=== PATIENT | male | born 1965 | race Caucasian/White ===

== ENCOUNTER 2022-10-21 13:14 | Outpatient (REF) | payer OTHER, SELFPAY ==
[2022-10-21 16:30] LABS: ALT 29 U/L (16-63); AST 17 U/L (15-37); Albumin 4.5 g/dL (3.4-5.0); Alkaline Phosphatase 91 U/L (46-116); Anion Gap 9.6 mmol/L (3-11); BUN 16 mg/dL (7-18); Bilirubin, Total 0.6 mg/dL (0.2-1.0); CO2 27.4 mmol/L (21.0-32.0); CREATININE 1.2 mg/dL (0.70-1.30); Calcium 10.1 mg/dL (8.5-10.1); Chloride 96 mmol/L (98-107); Cholesterol 144 mg/dL (<200); Estimated GFR 69.66 (mL/min/1.73m2); Glucose 374 mg/dL (74-106); HDL Cholesterol 35 mg/dL (40-60); Potassium 4.2 mmol/L (3.5-5.1); Sodium 133 mmol/L (136-145); Total Protein 7.8 g/dL (6.4-8.2); Triglyceride 577 mg/dL (<150)
[2022-10-21 18:24] LABS: LDL CHOLESTEROL 44 mg/dL (<100)
[2022-10-22 20:24] LABS: PSA, Screening 5.2 ng/mL (<=3.5)
== END 2022-10-21 13:15 | disposition home or self-care (01) ==
LOC: NCHCN 13:14
PROVIDERS: Visit Provider Nurse Practitioner Family
DX: Z12.5 Encounter for screening for malignant neoplasm of prostate (principal); E11.9 Type 2 diabetes mellitus without complications; E78.5 Hyperlipidemia, unspecified
CPT/HCPCS: 80053; 80061; 83721; 84153

== ENCOUNTER → 2022-11-23 14:51 | Outpatient (BNVA) | payer OTHER, SELFPAY | PROVIDERS: PCP Nurse Practitioner Family; Referring Provider Nurse Practitioner Family; Visit Provider Urology | DX: R97.20 Elevated prostate specific antigen [PSA] (principal); R35.1 Nocturia; N39.43 Post-void dribbling | CPT/HCPCS: 51798; 99204 ==

== ENCOUNTER → 2022-12-14 09:33 | Outpatient (BNVA) | payer OTHER, SELFPAY | PROVIDERS: PCP Nurse Practitioner Family; Referring Provider Nurse Practitioner Family; Visit Provider Urology ==

== ENCOUNTER 2022-12-14 09:54 | Outpatient (REF) | payer OTHER, SELFPAY ==
[2022-12-14 18:36] LABS: PSA, Diagnostic 4.6 ng/mL (<=3.5)
== END 2022-12-14 09:55 | disposition home or self-care (01) ==
LOC: LBN 09:54
PROVIDERS: PCP Nurse Practitioner Family; Visit Provider Urology
DX: R97.20 Elevated prostate specific antigen [PSA] (principal)
CPT/HCPCS: 84153

== ENCOUNTER → 2022-12-31 11:00 | Outpatient (BNVA) | payer OTHER, SELFPAY | PROVIDERS: PCP Nurse Practitioner Family; Referring Provider Nurse Practitioner Family; Visit Provider Urology | DX: R97.20 Elevated prostate specific antigen [PSA] (principal) | CPT/HCPCS: 99214 ==

== ENCOUNTER 2023-01-20 16:47 | Outpatient (REF) | payer OTHER, SELFPAY ==
[2023-01-20 15:50] LABS: Hemoglobin A1C 11.7 % (<5.7)
[2023-01-20 16:00] LABS: Iron 63 ug/dL (65-175); Total Iron Binding Capacity 293 ug/dL (250-450); Transferrin Sat 22 % (20-55)
[2023-01-20 16:11] LABS: Cholesterol 125 mg/dL (<200); Ferritin 333 ng/mL (26-388); HDL Cholesterol 35 mg/dL (40-60); Triglyceride 511 mg/dL (<150)
[2023-01-20 17:08] LABS: LDL CHOLESTEROL 25 mg/dL (<100)
== END 2023-01-20 16:48 | disposition home or self-care (01) ==
LOC: NCHCN 16:47
PROVIDERS: PCP Nurse Practitioner Family; Visit Provider Nurse Practitioner Family
DX: E78.1 Pure hyperglyceridemia (principal); E83.119 Hemochromatosis, unspecified; E11.9 Type 2 diabetes mellitus without complications
CPT/HCPCS: 80061; 83721; 82728; 83036; 83540; 83550

== ENCOUNTER → 2023-03-01 10:54 | Outpatient (BNVA) | payer OTHER, SELFPAY | PROVIDERS: PCP Nurse Practitioner Family; Referring Provider Nurse Practitioner Family; Visit Provider Urology | DX: R97.20 Elevated prostate specific antigen [PSA] (principal) | CPT/HCPCS: 99213 ==

== ENCOUNTER → 2023-06-02 10:09 | Outpatient (BNVA) | payer OTHER, SELFPAY | PROVIDERS: PCP Nurse Practitioner Family; Referring Provider Nurse Practitioner Family; Visit Provider Physical Therapy Assistant | DX: Z12.11 Encounter for screening for malignant neoplasm of colon (principal); Z86.010 Personal history of colon polyps ==

== ENCOUNTER 2023-06-15 08:09 | Day surgery (SDC) | payer OTHER, SELFPAY ==
--- NOTE | 2023-06-15 06:17 | W.ANESPRE ---
General Info Date of Service Date Performed: 06/15/23 Height: 5 ft 11.5 in Weight: 109.419 kg Body Mass Index (BMI): 33.1 Surgical Procedure: Operation Date: 06/15/23 09:50 Proposed Procedure Side Surgeon p Colonoscopy Casey Reynoso MD Meds Allergies and Home Medications Allergies Allergy/AdvReac Type Severity Reaction Status Date / Time acetaminophen Allergy Verified 06/15/23 08:30 monosodium glutamate Allergy Verified 06/15/23 08:30 oxycodone Allergy Verified 06/15/23 08:30 Home Medication Medication Instructions Recorded atorvastatin 20 mg tablet 20 mg PO DAILY 11/03/22 enalapril maleate 20 mg tablet 20 mg PO DAILY 11/03/22 fenofibrate 160 mg tablet 160 mg PO DAILY 11/03/22 metformin 500 mg tablet 500 mg PO DAILY 11/03/22 bisacodyl 5 mg tablet,delayed 5 mg PO ONCE colonscopy bowel prep 06/02/23 release (Dulcolax (bisacodyl)) #4 tabs polyethylene glycol 3350 17 238 g PO ONCE colonoscopy prep 06/02/23 gram/dose oral powder #238 grams semaglutide 0.25 mg or 0.5 mg (2 0.5 mg subcut QWEEK 06/02/23 mg/3 mL) subcutaneous pen injector (Ozempic) Current Visit Medications: Current Medications Generic Name Dose Route Start Last Admin Trade Name Freq PRN Reason Stop Dose Admin Ringer's Solution 1,000 mls @ 80 mls/hr 06/15/23 06:00 IV 07/14/23 23:59 INFUSION ANNIKA IV Miscellaneous Supplies 1 each 06/15/23 06:00 Iv Access IV 07/14/23 23:59 DIRECTED ANNIKA Sodium Chloride 0 ml 06/15/23 06:00 Normal Saline Flush 10 Ml Syr IV 07/14/23 23:59 PRN PRN Sodium Chloride 0 ml 06/15/23 06:00 Normal Saline 10 Ml Vial IJ 07/14/23 23:59 DIRECTED PRN Sterile Water 0 ml 06/15/23 06:00 Water,Injection,Sterile 10 Ml Vial IJ 07/14/23 23:59 DIRECTED PRN PFSH Active Problems Active Problems: Problem Status Onset Code Nocturia R35.1 Elevated PSA R97.20 Obesity E66.9 Hypertriglyceridemia E78.1 Back pain M54.9 Nephrolithiasis N20.0 History of rectal bleeding Z87.19 Hyperlipidemia E78.5 Colonic polyp K63.5 Family history of hemochromatosis Z83.49 Family history of malignant melanoma Z80.8 Dribbling following urination N39.43 Hypertension I10 Diabetes mellitus E11.9 Medical History Medical History MRSA (methicillin resistant staph aureus) culture positive to buttocks 2011 Scrotal abscess 2005 Surgical History Surgical History H/O lumbosacral spine surgery disc removal 2012, 2014, 2016 MRI 2014 H/O vasectomy Tobacco Smoking/Tobacco Use Status: Current-Occasional Alcohol Alcohol Intake: never Substance Use Substance use: Socially Substance use type: marijuana Vital Signs and Lab Results Vital Signs Most Recent Vital Signs in EMR: Temp Pulse Resp BP Pulse Ox 36.4 C L 65 17 133/82 100 06/15/23 08:21 06/15/23 08:21 06/15/23 08:21 06/15/23 08:21 06/15/23 08:21 Lab Results Blood Type / Crossmatch: No Data to Display Complete Blood Count: No Data to Display Complete Metabolic Panel: No Data to Display Liver Function Panel: No Data to Display Coagulation Panel: No Data to Display Cardiac Panel: No Data to Display Arterial Blood Gas: No Data to Display Venous Blood Gas: No Data to Display Pancreas Panel: No Data to Display Thyroid Panel: No Data to Display Infectious Disease: No Data to Display Blood Cultures: No Data to Display Toxicology Panel: No Data to Display Anesthesia Assessment and Plan Anesthesia History Personal History: No History of Anesthesia Complications Family History: No Family History of Anesthesia Complications Exercise Tolerance Exercise Tolerance: Metabolic Equivalents>4 Cardiac & Pulmonary Exam Cardiac Exam: Normal S1/S2 Heart Sounds Pulmonary Exam: Clear Bilateral Breath Sounds Implantable Cardiac Device Does patient have a Pacemaker or an ICD?: No Airway Exam Known Difficult Airway: No Mallampati Class: 3 Mouth Opening: Normal (> 3cm) Thyromental Distance: Greater than 3 cm Neck Range of Motion: Full ROM Neck Circumference: Normal Teeth Condition: Normal Dentition ASA Classification ASA Score: ASA 2 Emergency Case?: No NPO Status NPO Status: NPO Clears >2 hours, Solids >8 hours Anesthesia Plan Resuscitation Status: Full Code Anesthesia Technique: General Anesthesia Airway Planned: Natural Airway Monitors Used: Standard Monitors Preoperative Comments:: 57 yo male for colo. Sig PMHx: HTN (enalapril), DM (metformin, semaglutide, 9 A1c), occ tobacco/cannabis
[2023-06-15 08:21] VITALS: BP 133/82; PULSE 65; RESP 17; TEMP 36.4; O2SAT 100
[2023-06-15 08:41] VITALS: BMI 33.1
[2023-06-15] MEDS: Lactated Ringers 1,000 ML 80 ML IV (08:43)
--- NOTE | 2023-06-15 09:46 | BOWEL_PTH ---
PATIENT: Jose Mendoza LOC: [facility] U#:[id number] AGE/SX: 57/M ROOM: RE06/15/[address]: Casey Reynoso : 1965 BED: DIS: 06/15/2023 SPEC #: [id number] RECD: 06/15/23 13:16 STATUS: [facility] #: [id number] SEVEN: 06/15/23 09:[address]: Casey Reynoso DEPT: Surgical Specimen RECD BY: Fide Conner ENTERED: 06/15/23 13:17 SP TYPE: Bowel OTHR DR: Marla Doe Tissues: 1 - BIOPSY BOWEL Procedures: GROSS AND MICRO LEVEL 4 Comments: [id number]
[2023-06-15 09:57] VITALS: BP 128/98; PULSE 74; RESP 18; TEMP 36.7; O2SAT 97
--- NOTE | 2023-06-15 10:00 | ROE_ITS ---
Date of service: 06/15/23 Time of Service: 10:00 Operative Note Operative Note Refer to Anesthesia Record Procedure Description: Procedures performed: 1.? Anoscopy 2.? Internal Hemorrhoid banding x4 Preoperative diagnosis: Symptomatic grade 2 internal hemorrhoids Postoperative diagnosis: Same Surgeon: Alice Reynoso Anesthesia: Tom Indication for procedure: 57-year-old man with symptomatic hemorrhoids that bleed regularly.? He was found to have grade 2 internal hemorrhoids on colonoscopy.? He has mild external hemorrhoid disease as well. Findings: All 3 columns rubber-banded. The Left Lateral column disease faci litated 2 rubber bandings. Surveillance/follow-up recommendations: No follow-up needed.? The durability of hemorrhoidal interventions varies greatly and sometimes is only a few years before other hemorrhoids develop/recur. Complications: None Blood loss: Minimal Specimens:? No Procedure in detail: Written consent was obtained from the patient who was in agreement with the risks, benefits and indications of the procedure.? He was kept in the same position after the colonoscopy was done (see separate procedure note) and a well?lubricated anoscope was introduced in the anal canal carefully evaluated for other pathology such as fistulas and/or fissures.? None were seen. Grade 2 internal hemorrhoids were visualized at all 3 columns.? Rubber band ligation was performed at all 3 columns, just above the dentate line, with 1 rubber band placed at each location.? The patient tolerated this procedure well. The scope was then removed and the PACU in stable condition and was not having perianal pain at that time.
--- NOTE | 2023-06-15 10:00 | W.COLOREPORT ---
Date of service: 06/15/23 Time of Service: 10:00 Colonoscopy Report Procedure Description: Procedures performed: 1. Colonoscopy with snare polypectomy x1 Preoperative diagnosis: Surveillance colonoscopy Postoperative diagnosis: Colon polyps, moderate sigmoid diverticulosis, grade 2 internal and external hemorrhoids Surgeon: Alice Reynoso Anesthesia: Tom Indication for procedure: Patient is a 57-year-old man. He had a colonoscopy 6 years ago and was recommended to have a repeat scope in 5 years for surveillance purposes. His polyp at that time was hyperplastic pathology. He does not have a family history of colon cancer. He does have on/off painless rectal bleeding. Findings: The terminal ileum was normal. No inflammation. The right and transverse colon's were normal. A 3 to 5 mm sessile polyp was removed from the sigmoid colon with cold snare technique.? It looked hyperplastic visually. A couple other hyperplastic?appearing polyps remain and were left alone under the presumption they are hyperplastic/benign. Moderate diverticular changes in the sigmoid colon.? Moderate grade 2 internal hemorrhoids were noted on retroflexion. There is some moderate external hemorrhoid disease as well. Banding was performed (see separate procedure note). Surveillance/follow-up recommendations: I presume the pathology will confirm another hyperplastic polyp and if it does and his repeat colonoscopy should be in 10 years. Complications: None Blood loss: Minimal Specimens:?? YES Quality of Prep:?? Good Procedure in detail: Written consent was obtained from the patient who was in agreement with the risks, benefits and indications of the procedure.? We went to the endoscopy suite and laid the patient in left lateral decubitus position.? Anesthesia was administered which was tolerated well.? A timeout was performed and when we are all in agreement we began the procedure. Digital rectal exam and visual examination was performed and within normal limits.? A well?lubricated colonoscope was advanced without difficulty all the way to the cecum identified by the ileocecal valve, and triangular folds and appendiceal orifice.? The terminal ileum was intubated and look normal. The scope was then slowly withdrawn.?? Retroflexion was performed in the rectum.? The findings/interventions are noted above. The scope was then removed and the patient tolerated the procedure well. We then proceeded with banding (see separate procedure note).
--- NOTE | 2023-06-15 10:01 | W.ANESPOSTOP ---
Postoperative Evaluation Date, Time and Location Date Performed: 06/15/23 Time Performed: 10:03 Patient Location: Day Surgery Unit Vital Signs Most Recent Imported Vital Signs: Most Recent Vital Signs Temp Pulse Resp BP Pulse Ox 36.4 C L 65 17 133/82 100 06/15/23 08:21 06/15/23 08:21 06/15/23 08:21 06/15/23 08:21 06/15/23 08:21 Pain Score Most Recent Pain Score: Most Recent Pain Score Pain Level 0 06/15/23 08:21 Assessment Mental Status: Awake (Alert & Oriented to Patient Baseline) Airway and Respiratory Function: Patent airway with normal (patient baseline) respiratory exam Cardiovascular Function: Hemodynamically Stable Hydration Status: Adequately Hydrated Nausea & Vomiting: No Nausea or Vomiting Pain: Pt. Denies Any Pain Peripheral Nerve Block: Patient did not receive a nerve block Postoperative Comments:: vss
--- NOTE | 2023-06-15 10:05 | W.PM.DSUDISC ---
Date of service: 06/15/23 Time of Service: 10:05 Discharge Plan Disposition Patient Disposition: Home Condition: Good Discharge Details Attending Provider: Casey Reynoso Primary Care Provider: Marla Doe Home Meds and New Rx's Prescriptions: No Action polyethylene glycol 3350 17 gram/dose powder 238 g PO ONCE Qty: 238 0RF Rx Instructions: take per colonoscopy instructions bisacodyl [Dulcolax (bisacodyl)] 5 mg tablet,delayed release (DR/EC) 5 mg PO ONCE Qty: 4 0RF Rx Instructions: take per colonoscopy instructions Ozempic 0.25 mg or 0.5 mg (2 mg/3 mL) pen injector 0.5 mg subcut QWEEK metformin 500 mg tablet 500 mg PO DAILY atorvastatin 20 mg tablet 20 mg PO DAILY fenofibrate 160 mg tablet 160 mg PO DAILY enalapril maleate 20 mg tablet 20 mg PO DAILY Discharge Instructions Additional Instructions: FINDINGS: Your colon appears healthy. The end of your small intestine (terminal ileum) looked normal. Your rectum appears normal but significant hemorrhoid disease was indeed found and banding was performed. There will be some discomfort following the banding which should last for couple of days and then slowly go away. Most of the time this will be all that needs to be done in order to get rid of your symptoms. Another polyp was found today but is likely a completely benign polyp and you probably need to do another colonoscopy in 10 years. Stand Alone Forms: Colonoscopy Post Instructions Activity:: Activity as Tolerated Diet:: Normal Diet DS: Diagnosis Discharge Diagnosis (1) History of rectal bleeding: Status: Acute Asessment and Plan: Findings: Your colon appears healthy. The end of your small intestine (terminal ileum) looked normal. Your rectum appears normal but significant hemorrhoid disease was indeed found and banding was performed. There will be some discomfort following the banding which should last for couple of days and then slowly go away. Most of the time this will be all that needs to be done in order to get rid of your symptoms. Another polyp was found today but is likely a completely benign polyp and you probably need to do another colonoscopy in 10 years.
[2023-06-15 10:30] VITALS: BP 130/88; PULSE 76; RESP 18; TEMP 36.7; O2SAT 98
== END 2023-06-15 10:49 | disposition home or self-care (01) ==
PROVIDERS: PCP Family Medicine; Visit Provider Student in an Organized Health Care Education/Training Program
PROC: 0DJD8ZZ Inspection of Lower Intestinal Tract, Via Natural or Artificial Opening Endoscopic (ICD-10-PCS; CPT 45378; principal; 2023-06-15 09:45)
DX: Z12.11 Encounter for screening for malignant neoplasm of colon (principal); K64.1 Second degree hemorrhoids; K64.4 Residual hemorrhoidal skin tags; Z86.010 Personal history of colon polyps; K63.5 Polyp of colon; K57.30 Diverticulosis of large intestine without perforation or abscess without bleeding
CPT/HCPCS: 45385; 46221; 88305; J2001

== ENCOUNTER 2023-08-23 01:56 | Outpatient (CLI) | payer OTHER, SELFPAY ==
[2023-08-23 18:31] LABS: PSA, Diagnostic 4.6 ng/mL (<=4.5)
== END 2023-08-23 01:57 | disposition home or self-care (01) ==
PROVIDERS: PCP Family Medicine; Visit Provider Urology
DX: R97.20 Elevated prostate specific antigen [PSA] (principal)
CPT/HCPCS: 36415; 84153

== ENCOUNTER → 2023-08-30 08:15 | Outpatient (BNVA) | payer OTHER, SELFPAY | PROVIDERS: PCP Family Medicine; Referring Provider Nurse Practitioner Family; Visit Provider Nurse Practitioner Gerontology | DX: R39.89 Other symptoms and signs involving the genitourinary system (principal); R97.20 Elevated prostate specific antigen [PSA] | CPT/HCPCS: 99213 ==

== ENCOUNTER 2023-11-24 16:23 | Outpatient (REF) | payer OTHER, SELFPAY ==
[2023-11-24 19:56] LABS: ALT 33 U/L (16-63); AST 20 U/L (15-37); Albumin 4.1 g/dL (3.4-5.0); Alkaline Phosphatase 67 U/L (46-116); Anion Gap 10.9 mmol/L (3-11); BUN 13 mg/dL (7-18); Bilirubin, Total 0.3 mg/dL (0.2-1.0); CO2 26.1 mmol/L (21.0-32.0); CREATININE 1.1 mg/dL (0.70-1.30); Calcium 9.5 mg/dL (8.5-10.1); Calculated LDL 59 mg/dL (<100); Chloride 103 mmol/L (98-107); Cholesterol 157 mg/dL (<200); Estimated GFR 76.85 (mL/min/1.73m2); Glucose 108 mg/dL (74-106); HDL Cholesterol 38 mg/dL (40-60); Potassium 4.1 mmol/L (3.5-5.1); Sodium 140 mmol/L (136-145); TSH (W/Ref FT4) 2.99 uIU/mL (0.36-3.74); Total Protein 7.5 g/dL (6.4-8.2); Triglyceride 301 mg/dL (<150)
[2023-11-24 20:01] LABS: Hemoglobin A1C 6.6 % (<5.7)
[2023-11-24 20:15] LABS: COMMENT (LAB VIEW ONLY) 127.82 mg/dL; Microalb ug/mg Crea 16.1 ug/mg Cr
== END 2023-11-24 16:24 | disposition home or self-care (01) ==
LOC: NCHCN 16:23
PROVIDERS: PCP Family Medicine; Referring Provider Nurse Practitioner Family; Visit Provider Nurse Practitioner Family
DX: I10 Essential (primary) hypertension (principal); E78.5 Hyperlipidemia, unspecified; E11.9 Type 2 diabetes mellitus without complications; R63.5 Abnormal weight gain
CPT/HCPCS: 80053; 80061; 82043; 82570; 83036; 84443

== ENCOUNTER 2024-01-13 18:42 | Outpatient (REF) | payer OTHER, SELFPAY ==
[2024-01-13 15:36] LABS: C-Reactive Protein 0.54 mg/dL (<or=0.5); Creatine Kinase 95 U/L (39-308)
[2024-01-13 15:43] LABS: D-Dimer 550 ng/mlFEU (<500)
== END 2024-01-13 18:43 | disposition home or self-care (01) ==
LOC: NCHCN 18:42
PROVIDERS: PCP Family Medicine; Visit Provider Family Medicine
DX: H53.2 Diplopia (principal); M79.604 Pain in right leg
CPT/HCPCS: 82550; 85379; 86140

== ENCOUNTER → 2024-01-16 09:27 | Outpatient (CLI) | payer OTHER, SELFPAY ==
--- NOTE | 2024-01-16 | DI.MRI_ITS ---
Exam(s) MR BRAIN WO EXAM: MR BRAIN WO CLINICAL HISTORY: HTN, DM, NEW ONSET DIPLOPLIA A/W NEW POSTERIOR NORRIS 2 WEEKS AGO, H53.2 TECHNIQUE: Multiplanar multisequence MRI of the brain was performed. COMPARISON: No exams were available for comparison FINDINGS: CEREBRAL PARENCHYMA: There is significant enlargement of the entire right lateral ventricle which is not associated with e nlargement of the 3rd and 4th ventricles and the opposite-left lateral ventricle exhibits normal size . There is no colloid cysts nor other obvious focal abnormality at the level of the foramen of Monro causing this abnormality unilateral enlargement of the right lateral ventricle. There is also no pe riventricular signal abnormality in the immediate vicinity although there are a few small nonspecific FLAIR bright white matter foci in both sides of the brain measuring up to 5 mm (left side). These a re not associated with hemorrhage, surrounding edema, nor restricted diffusion. There is no significant focal signal abnormality in the cerebellar hemispheres nor within the thu, m idbrain, and thalami. There is no abnormal signal abnormality in the periventricular white matter. There is no significant focal signal abnormality evident on diffusion imaging to suggest acute ischem ic event. PITUITARY GLAND: No mass nor parasellar abnormality. No obvious abnormality in the cavernous sinuses. FLOW VOIDS: The expected flow void are noted. No evidence of obvious aneurysm nor obvious vascular ma lformation. PARANASAL SINUSES: There is some mucosal thickening in all the paranasal sinuses and there is a post inflammatory retention cyst in the anterior aspect of the left maxillary sinus measuring slightly ove r 1 cm size. ORBITS: No obvious findings. IMPRESSION: There is significant abnormal unilateral dilatation of the entire right lateral ventricle, not associ ated with an obvious mass, adjacent abnormal periventricular white matter findings nor asymmetric inv olutional change. There are few nonspecific foci of signal abnormality in the periventricular white matter not associat ed with hemorrhage nor surrounding edema nor restricted diffusion. Appropriate neuro referral recommended. DATA REPOSITORY:
== END ==
PROVIDERS: PCP Family Medicine; Visit Provider Family Medicine
DX: R51.9 Headache, unspecified (principal); I10 Essential (primary) hypertension; H53.2 Diplopia; R94.02 Abnormal brain scan; E11.9 Type 2 diabetes mellitus without complications
CPT/HCPCS: 70551

== ENCOUNTER → 2024-01-19 13:19 | Outpatient (BNVA) | payer OTHER, SELFPAY | PROVIDERS: PCP Family Medicine; Referring Provider Family Medicine; Visit Provider Psychiatry & Neurology Neurology | DX: H49.12 Fourth [trochlear] nerve palsy, left eye (principal); R90.89 Other abnormal findings on diagnostic imaging of central nervous system; R29.2 Abnormal reflex | CPT/HCPCS: 99215; G2212 ==

== ENCOUNTER 2024-01-19 15:10 | Outpatient (CLI) | payer OTHER, SELFPAY ==
[2024-01-19 15:26] LABS: ESR 10 mm/hr (0-20)
[2024-01-19 16:40] LABS: C-Reactive Protein < 0.50 mg/dL (<or=0.5)
[2024-01-20 09:13] LABS: Lyme Ab w Rflx to Lyme Confirm Negative (Negative)
== END 2024-01-19 15:11 | disposition home or self-care (01) ==
LOC: LBO 15:10
PROVIDERS: PCP Family Medicine; Visit Provider Psychiatry & Neurology Neurology
DX: H49.12 Fourth [trochlear] nerve palsy, left eye (principal)
CPT/HCPCS: 36415; 85652; 86140; 86618

== ENCOUNTER 2024-02-14 05:34 | Outpatient (CLI) | payer OTHER, SELFPAY ==
[2024-02-14 17:51] LABS: PSA, Diagnostic 4.7 ng/mL (<=4.5)
== END 2024-02-14 05:35 | disposition home or self-care (01) ==
LOC: LBO 05:34
PROVIDERS: PCP Nurse Practitioner Family; Visit Provider Nurse Practitioner Gerontology
DX: R97.20 Elevated prostate specific antigen [PSA] (principal)
CPT/HCPCS: 36415; 84153

== ENCOUNTER → 2024-02-21 07:52 | Outpatient (BNVA) | payer OTHER, SELFPAY | PROVIDERS: PCP Nurse Practitioner Family; Visit Provider Nurse Practitioner Gerontology | DX: N40.1 Benign prostatic hyperplasia with lower urinary tract symptoms (principal); R39.12 Poor urinary stream; R97.20 Elevated prostate specific antigen [PSA] | CPT/HCPCS: 99213 ==

== ENCOUNTER → 2024-03-26 08:17 | Outpatient (BNVA) | payer OTHER, SELFPAY | PROVIDERS: PCP Family Medicine; Referring Provider Family Medicine; Visit Provider Psychiatry & Neurology Neurology | DX: H49.12 Fourth [trochlear] nerve palsy, left eye (principal); R90.89 Other abnormal findings on diagnostic imaging of central nervous system; R29.2 Abnormal reflex | CPT/HCPCS: 99213 ==

== ENCOUNTER 2024-05-10 11:49 | Outpatient (REF) | payer OTHER, SELFPAY ==
[2024-05-10 18:30] LABS: Abs Immature Grans 0.03 10^3/uL (0.0-0.06); Absolute Basophil Count 0.05 10^3/uL (0.0-0.2); Absolute Lymphocyte Count 1.93 10^3/uL (1.2-3.4); Absolute Monocyte Count 0.38 10^3/uL (0.1-0.8); Absolute Neutrophil Count 3.64 10^3/uL (1.2-6.7); Basophils % 0.8 %; Eosinophils % 4.7 %; HCT 43.9 % (40.0-50.0); Immature Grans % 0.5 %; Lymphocytes % 30.5 %; MCH 29.4 pg (27.0-33.0); MCHC 34.2 % (32.0-36.0); MCV 86 fL (80-95); MPV 11.5 fL (8.0-11.0); Neutrophils % 57.5 %; Platelet Count 225 10^3/uL (130-400); RDW 11.9 % (11.8-14.1); RDW-SD 37.8 fL; WBC 6.33 10^3/uL (4.4-10.8)
[2024-05-10 18:54] LABS: ALT 25 U/L (16-63); AST 20 U/L (15-37); Albumin 4.3 g/dL (3.4-5.0); Alkaline Phosphatase 58 U/L (46-116); Anion Gap 11.2 mmol/L (3-11); BUN 15 mg/dL (7-18); Bilirubin, Total 0.27 mg/dL (0.2-1.0); CO2 25.8 mmol/L (21.0-32.0); CREATININE 1.1 mg/dL (0.70-1.30); Calcium 9.3 mg/dL (8.5-10.1); Calculated LDL 89 mg/dL (<100); Chloride 103 mmol/L (98-107); Cholesterol 159 mg/dL (<200); Estimated GFR 76.85 (mL/min/1.73m2); Ferritin 153 ng/mL (26-388); Glucose 121 mg/dL (74-106); HDL Cholesterol 39 mg/dL (40-60); Potassium 4.2 mmol/L (3.5-5.1); Sodium 140 mmol/L (136-145); Total Protein 7.2 g/dL (6.4-8.2); Triglyceride 156 mg/dL (<150)
[2024-05-10 19:13] LABS: Iron 51 ug/dL (65-175); Total Iron Binding Capacity 317 ug/dL (250-450); Transferrin Sat 16 % (20-55)
== END 2024-05-10 11:50 | disposition home or self-care (01) ==
LOC: NCHCN 11:49
PROVIDERS: PCP Family Medicine; Visit Provider Nurse Practitioner Family
DX: E11.9 Type 2 diabetes mellitus without complications (principal); E83.119 Hemochromatosis, unspecified; E78.1 Pure hyperglyceridemia
CPT/HCPCS: 80053; 80061; 82728; 83540; 83550; 85025

== ENCOUNTER 2025-02-01 13:24 | Outpatient (REF) | payer MEDICARE, SELFPAY ==
[2025-02-01 20:59] LABS: Abs Immature Grans 0.08 10^3/uL (0.0-0.06); Absolute Basophil Count 0.05 10^3/uL (0.0-0.2); Absolute Eosinophil Count 0.38 10^3/uL (0.0-0.7); Absolute Lymphocyte Count 2.44 10^3/uL (1.2-3.4); Absolute Neutrophil Count 3.53 10^3/uL (1.2-6.7); Basophils % 0.7 %; Eosinophils % 5.5 %; HCT 44.8 % (40.0-50.0); HGB 15.4 g/dL (13.5-17.5); Immature Grans % 1.2 %; Lymphocytes % 35.5 %; MCH 30.3 pg (27.0-33.0); MCHC 34.4 % (32.0-36.0); MCV 88 fL (80-95); Monocytes % 5.8 %; Neutrophils % 51.3 %; Platelet Count 215 10^3/uL (130-400); RBC 5.09 10^6/uL (4.36-5.78); RDW 12.2 % (11.8-14.1); RDW-SD 39.7 fL; WBC 6.88 10^3/uL (4.4-10.8)
[2025-02-01 21:14] LABS: Iron 75 ug/dL (65-175); Total Iron Binding Capacity 308 ug/dL (250-450); Transferrin Sat 24 % (20-55)
[2025-02-01 21:25] LABS: ALT 58 U/L (16-63); AST 29 U/L (15-37); Albumin 4.3 g/dL (3.4-5.0); Alkaline Phosphatase 87 U/L (46-116); Anion Gap 7.9 mmol/L (3-11); BUN 20 mg/dL (7-18); Bilirubin, Total 0.5 mg/dL (0.2-1.0); CO2 29.1 mmol/L (21.0-32.0); CREATININE 1.3 mg/dL (0.70-1.30); Calcium 9.6 mg/dL (8.5-10.1); Chloride 101 mmol/L (98-107); Cholesterol 215 mg/dL (<200); Ferritin 238 ng/mL (26-388); Glucose 255 mg/dL (74-106); HDL Cholesterol 33 mg/dL (>or=40); Potassium 4.7 mmol/L (3.5-5.1); Sodium 138 mmol/L (136-145); Total Protein 7.5 g/dL (6.4-8.2); Triglyceride 819 mg/dL (<150)
[2025-02-01 21:39] LABS: Hemoglobin A1C 9.4 % (<5.7)
[2025-02-01 21:51] LABS: COMMENT (LAB VIEW ONLY) 260.93 mg/dL; Microalb ug/mg Crea 11.2 ug/mg Cr
[2025-02-01 22:34] LABS: LDL CHOLESTEROL 63 mg/dL (<100)
[2025-02-04 11:33] LABS: PSA, Diagnostic 5.1 ng/mL (<=4.5)
== END 2025-02-01 13:25 | disposition home or self-care (01) ==
LOC: NCHCN 13:24
PROVIDERS: PCP Family Medicine; Visit Provider Nurse Practitioner Family
DX: E11.9 Type 2 diabetes mellitus without complications (principal); R97.20 Elevated prostate specific antigen [PSA]; E83.119 Hemochromatosis, unspecified; E78.1 Pure hyperglyceridemia
CPT/HCPCS: 80053; 80061; 83721; 82043; 82570; 82728; 83036; 83540; 83550; 84153; 85025

== ENCOUNTER → 2025-02-06 09:31 | Outpatient (BNVA) | payer MEDICARE, SELFPAY | PROVIDERS: PCP Family Medicine; Referring Provider Family Medicine; Visit Provider Nurse Practitioner Gerontology | DX: N40.1 Benign prostatic hyperplasia with lower urinary tract symptoms (principal); N13.8 Other obstructive and reflux uropathy; R97.20 Elevated prostate specific antigen [PSA] | CPT/HCPCS: 99213 ==

== ENCOUNTER 2025-02-16 16:50 | Inpatient (IN) | payer MEDICARE, SELFPAY ==
[2025-02-16] VITALS (114 sets, daily range): BP systolic 112–219; BP diastolic 61–113; PULSE 70–106; RESP 12–24; TEMP 36.7–36.8; O2SAT 80–100
--- NOTE | 2025-02-16 16:45 | RT.EKG_ITS ---
APPROVED REPORT Exam: Resting ECG Reason for Exam: SOB Patient Location: E HR:74 bpm ECG Measurements Heart Rate 74 AXIS GA 159 P 66 QRSd 109 QRS 18 QT 437 T 54 QTc 485 Conclusion Sinus arrhythmia 74 no stemi
--- NOTE | 2025-02-16 17:00 | DI.CT_ITS ---
Exam(s) CT THORAX ABD/PEL CTA EXAM: CT THORAX ABD/PEL CTA CLINICAL HISTORY: eval dissection. TECHNIQUE: Imaging Protocol: Axial computed tomography images with coronal and sagittal reformatted images were created and reviewed CONTRAST MATERIAL: Intravenous: Omnipaque 350 Contrast volume:100 ml Oral: None COMPARISON: No exams were available for comparison FINDINGS: CHEST: AORTA: The diameter of the ascending thoracic aorta is within normal limits as is the aortic arch. T he diameter of the descending thoracic aorta is upper normal. There is no evidence of aortic dissect ion nor pericardial effusion. The abdominal aorta also exhibits normal diameter with no evidence of aneurysm nor dissection. There is mild atherosclerotic involvement of the common carotid arteries without evidence of aneurysm nor dissection and the external iliac arteries and common femoral arteries appear unremarkable. Internal iliac arteries are patent. There is no significant stenosis at the origin of the celiac and superior mesenteric arteries and the inferior mesenteric artery is patent. There is no significant stenosis in the renal arteries. LUNGS: There are no confluent infiltrates nor pleural effusions.. There is a noncalcified 3 mm nodul e in the peripheral aspect of the lingular segment of the left lung. There is a 2 millimeter nodule in the right upper lobe. No significant findings in the trachea and mainstem bronchi and there is no bronchiectasis. MEDIASTINUM: There is no hilar nor mediastinal adenopathy. Thyroid gland normal size but there appear s to be a possibly significant nodulein the left lobe which measures over 1.5 cm. Tiny cyst in the r ight thyroid lobe. CARDIAC: Heart size is normal. There is no pericardial effusion. Ventricular ratio is approximately 1:1 ABDOMEN: There is no evidence of abdominal aortic aneurysm nor dissection.There is no aneurysmal dilatation of the common iliac arteries.The celiac and superior mesenteric arteries are patent. There is no ascites. There are no ischemic appearing bowel loops. LIVER: There are no focal hepatic lesions nor dilatation of intrahepatic ducts. GALLBLADDER/BILIARY: Small gallstone is noted neared the gallbladder neck. There is no gallbladder w all edema nor pericholecystic fluid. No calculus seen in the cystic duct nor in the nondilated CBD. PANCREAS: No evidence of pancreatic mass nor dilatation of the pancreatic duct. SPLEEN: Spleen is not enlarged. There are no intrasplenic lesions. Splenic and portal veins are stephenson nt. ADRENALS: There are no significant adrenal masses. KIDNEYS: There is a small 7 millimeter benign cyst in the lateral cortex of the right kidney. Does n ot require further workup. No calculi nor hydronephrosis. No solid renal masses. ABDOMINAL AORTA: The abdominal aorta is not enlarged. LYMPH NODES: There is no retroperitoneal nor para-aortic adenopathy. No obvious mesenteric masses. ABDOMINAL WALL: No evidence of significant anterior abdominal wall hernia. GI: There is no evidence of bowel obstruction, free air, nor abscess. PELVIS: LYMPH NODES: There is no intrapelvic nor inguinal adenopathy. GI: No evidence of appendicitis.There are sigmoid diverticuli but no evidence of obvious acute divert iculitis. URINARY BLADDER: No calculi nor masses evident REPRODUCTIVE: Moderately enlarged prostate. Seminal vesicles unremarkable. OSSEOUS: No significant osseous lesions. No fractures evident. IMPRESSION: 1. No evidence of aortic aneurysm nor dissection, and there is no pericardial effusion. 2. Small benign-appearing lung nodules. Recommend repeat CT scan in 6 months to ensure stability. 3. Left thyroid lobe nodule measuring greater than 1.5 cm. Recommend follow-up nonemergent ultrasoun d of the thyroid. 4. Small calcified gallstone noted. No evidence of acute cholecystitis nor dilatation of the biliary tree. Other findings as above. Report called by myself to ER physician 02/16/2025 at 5:48 p.m. RADIATION DOSE DELIVERED: 1,277.05mGy.cm Total DLP DATA REPOSITORY: All CT scans at this facility are submitted to the National Radiology Data Registry (NRDR) Dose Index Registry (DIR) with the [employer] (A[employer]). RADIATION OPTIMIZATION: All CT scans at this facility use at least one of these dose optimization te chniques: automated exposure control; mA and/or kV adjustment per patient size (includes targeted exa ms where dose is matched to clinical indication); or iterative reconstruction.
[2025-02-16] MEDS: Normal Saline - Diluent 50 ML VIAL IJ (17:18)
--- NOTE | 2025-02-16 17:19 | W.ED.GENAD ---
Discharge Plan Disposition Patient Disposition: Admit to [facility] Condition: Serious Discharge Details Chief Complaint: SOB/SuddenOnset Clinical Impression: Hypertensive emergency, Acute dyspnea Primary Care Provider: Marla Doe ED Provider: Garrett Fine Home Meds and New Rx's Prescriptions: No Action Ozempic 0.25 mg or 0.5 mg (2 mg/3 mL) pen injector 0.5 mg subcut QWEEK aspirin 81 mg capsule 81 mg PO DAILY metformin 500 mg tablet 500 mg PO DAILY fenofibrate 160 mg tablet 160 mg PO DAILY enalapril maleate 20 mg tablet 20 mg PO DAILY HPI General Date/Time Provider Initiated Documentation: 02/16/25 17:00. Limitations to Documentation: physical limitation. Information obtained by: patient. HPI Narrative: 59-year-old gentleman with past medical history of hypertension diabetes presents for evaluation of acute onset shortness of breath. History is limited because patient is unable to provide significant information on arrival. He reports that he was driving and had acute onset shortness of breath. Shortly after he started to get sweaty and having dry heaves. He denies any chest pain. Related Data Home Medications ?Medication ?Instructions ?Recorded ?Confirmed enalapril maleate 20 mg tablet 20 mg PO DAILY 11/03/22 02/16/25 fenofibrate 160 mg tablet 160 mg PO DAILY 11/03/22 02/16/25 metformin 500 mg tablet 500 mg PO DAILY 11/03/22 02/16/25 semaglutide 0.25 mg or 0.5 mg (2 0.5 mg subcut QWEEK 06/02/23 02/16/25 mg/3 mL) subcutaneous pen injector (Ozempic) aspirin 81 mg capsule 81 mg PO DAILY 03/26/24 02/16/25 Allergies Allergy/AdvReac Type Severity Reaction Status Date / Time acetaminophen Allergy Other (See Verified 02/16/25 18:02 Comment) monosodium glutamate Allergy Other (See Verified 02/16/25 18:02 Comment) oxycodone Allergy Other (See Verified 02/16/25 18:02 Comment) General Stated Complaint: SOB/SuddenOnset LISET: 2 Exam Narrative Exam Narrative: Review of Systems: All systems reviewed & are unremarkable except as noted in HPI and below Obese, ill-appearing, diaphoretic, clammy with mottling NCAT RRR, no murmur Hypertensive No hypoxia or tachypnea or increased work of breathing Clear breath sounds bilaterally Slightly distended abdomen with tenderness No peripheral edema appreciated Course Vital Signs Vital signs: Vital Signs Pulse 87 02/16/25 17:01 Respiratory Rate 15 02/16/25 17: Blood Pressure 215/100 H 02/16/25 17:01 Pulse Oximetry 99 02/16/25 17:01 Pulse 87 02/16/25 17:01 Respiratory Rate 15 02/16/25 17:01 Blood Pressure 215/100 H 02/16/25 17:01 Blood Pressure Position Sitting 02/16/25 17: Pulse Oximetry 99 02/16/25 17:01 Oxygen Delivery Method Room Air 02/16/25 17: Oxygen Flow Rate 0 02/16/25 17:01 Medical Decision Making Emergent evaluation of shortness of breath. History is limited secondary to the patient's physical condition on arrival. He is noted to be severely hypertensive. He is reporting shortness of breath and difficulty speaking however he is not hypoxic or tachypneic. His overall appearance is poor he is mottled clammy. I reviewed his EKG which is no prior available for comparison. Sinus [address]ressions, no reciprocal change, no acute STEMI. Given his hypertension and abnormal EKG with multiple other risk factors, I am concerned for severe aortic pathology, hypertensive emergency or ACS causing the patient's symptoms. I we will give medication for blood pressure control and send for emergent scanning of his aorta. Discussed CT imaging with the radiologist and there does not appear to be a dissection or pericardial effusion, no pulmonary edema or pleural effusion noted. On reevaluation of the patient he remains hypertensive after 2 doses of labetalol, a Cardene infusion will be started. Patient maintains in normal oxygen saturation and respiratory rate but states that he cannot breathe. He says that he just does not have enough oxygen in his lungs. He appears uncomfortable and still suspicious that this is a cardiac etiology aspirin and nitroglycerin have been added. Initial blood work unremarkable including troponin that is not elevated. Magnesium is slightly low at 1.4. Will replace this. Patient was maintained on a Cardene infusion until he reached his goal MAP. And infusion was started to wean off. patient continued to say that he could not breathe and just felt very short of breath despite his oxygen and respiratory objective data. He is also very squarely about his abdomen and chest and legs hurting. I do not have a clear etiology for the symptoms and I am concerned that maybe there is some mental status changes though there there is no focal neurologic deficit. CT scan of his brain was ordered and this did not reveal any acute abnormality. He is a longstanding chronic ventricle change that does not appear changed from prior. Consider press given the acute onset lack of neurofindings does not seem likely. Lactic acid was elevated and considered mesenteric ischemia particularly with symptoms portion to exam but his CTA of his abdomen was unremarkable. ABG was obtained, no acute respiratory failure noted. I discussed with cardiology at [facility] and they concur with continued blood pressure treatment. Discussed with the hospitalist that though I do not have a clear diagnosis at this time, will admit the patient for continued telemetry monitoring, blood pressure control and further evaluation of ongoing symptoms. Quality:[facility] Related Social Needs: No Data to Display Critical Care Time Critical Care Time Critical Care Time: Yes Total Critical Care Time: 40 Attestation: CRITICAL CARE Upon my evaluation, this patient had a high probability of imminent or life-threatening deterioration due to hypertensive emergency which required my direct attention, intervention, and personal management. I have personally provided 40 minutes of critical care time exclusive of time spent on separately billable procedures. Time includes review of laboratory data, radiology results, discussion with consultants, and monitoring for potential decompensation. 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 (Acute) Nocturia (Acute) Elevated PSA (Acute) Obesity (Chronic) Hypertriglyceridemia (Acute) Back pain (Acute) Nephrolithiasis (Chronic) History of rectal bleeding (Acute) Colonic polyp (Acute) Family history of hemochromatosis (Acute) Family history of malignant melanoma (Acute) Dribbling following urination (Acute) Hypertension (Chronic) Diabetes mellitus (Chronic) Medical History Dribbling of urine Pain in right lower leg Low back pain Follicular cyst of skin Essential hypertension Neuropathy Type 2 diabetes mellitus MRSA (methicillin resistant staph aureus) culture positive to buttocks 2010 Scrotal abscess 2005 Surgical History History of back surgery History of colonoscopy (~06/2023) H/O vasectomy H/O lumbosacral spine surgery disc removal 2012, 2014, 2017 MRI 2014 Family History Father Colitis Hemophilia Heart disease Mother Heart disease Hypertension Sister Hemochromatosis Brother Hemochromatosis Diabetes Social History Smoking/Tobacco Use Status: Former Tobacco Use Smoking risk assessment performed?: Yes Alcohol Intake: never Drug use: Daily Substance use type: marijuana Household members: spouse Housing: house Number of Children: 3 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
[2025-02-16] MEDS: Omnipaque 350 MG/ML 100 ML BTL IJ (17:21)
[2025-02-16 17:22] LABS: Abs Immature Grans 0.11 10^3/uL (0.0-0.06); Absolute Basophil Count 0.07 10^3/uL (0.0-0.2); Absolute Eosinophil Count 0.15 10^3/uL (0.0-0.7); Absolute Lymphocyte Count 1.38 10^3/uL (1.2-3.4); Absolute Monocyte Count 0.42 10^3/uL (0.1-0.8); Basophils % 0.9 %; Eosinophils % 1.9 %; HCT 44.5 % (40.0-50.0); HGB 15.8 g/dL (13.5-17.5); Immature Grans % 1.4 %; Lymphocytes % 17.2 %; MCHC 35.5 % (32.0-36.0); MCV 85 fL (80-95); MPV 10.9 fL (8.0-11.0); Monocytes % 5.2 %; Neutrophils % 73.4 %; Platelet Count 223 10^3/uL (130-400); RBC 5.26 10^6/uL (4.36-5.78); RDW 12.2 % (11.8-14.1); WBC 8.03 10^3/uL (4.4-10.8)
[2025-02-16] MEDS: Normal Saline Flush 10 ML SYR IVP ×2 (17:25→23:04)
[2025-02-16] MEDS: Ondansetron 4 MG/2 ML VIAL IVP (17:25)
[2025-02-16] MEDS: Labetalol 100 MG/20 ML VIAL 20 MG IVP ×3 (17:27→20:05)
[2025-02-16 17:36] LABS: Prothrombin Time 10.1 sec (9.1-11.1)
[2025-02-16 17:46] LABS: ALT 50 U/L (16-63); AST 21 U/L (15-37); Albumin 4.7 g/dL (3.4-5.0); Alkaline Phosphatase 90 U/L (46-116); Anion Gap 15.9 mmol/L (3-11); BUN 12 mg/dL (7-18); Bilirubin, Total 0.8 mg/dL (0.2-1.0); CO2 22.1 mmol/L (21.0-32.0); CREATININE 1.3 mg/dL (0.70-1.30); Calcium 9.9 mg/dL (8.5-10.1); Chloride 96 mmol/L (98-107); Glucose 281 mg/dL (74-106); Magnesium 1.4 mg/dL (1.8-2.4); NT-proBNP 79 pg/mL (<300); Potassium 3.9 mmol/L (3.5-5.1); Sodium 134 mmol/L (136-145); Total Protein 8.2 g/dL (6.4-8.2); Troponin I 6 ng/L (<or=76)
[2025-02-16 17:48] LABS: *AMPHETAMINES SCREEN URINE Negative (Negative); *BARBITURATES SCREEN URINE Negative (Negative); *BENZODIAZEPINES SCREEN URINE Negative (Negative); Cannabinoids THC Positive (Negative); Cocaine Screen,Urine Negative (Negative); METHADONE URINE SCREEN Negative (Negative); OPIATES URINE SCREEN Negative (Negative); Tricyclic Antidepressants Negative (Negative)
[2025-02-16] MEDS: niCARdipine 25 MG in Normal Saline 240 ML 50 MG IV (17:57)
[2025-02-16] MEDS: nitroGLYcerin 0.4 MG TAB SL (18:00)
[2025-02-16] MEDS: Aspirin 325 MG TAB PO (18:00)
[2025-02-16 18:03] LABS: ETHANOL BLOOD < 3.0 mg/dL (<10)
[2025-02-16 18:04] LABS: Creatine Kinase 95 U/L (39-308)
[2025-02-16] MEDS: MAGNESIUM SULFATE 2 GM/50 ML BAG IVINF (18:30)
[2025-02-16 18:36] LABS: Troponin I 9 ng/L (<or=76)
--- NOTE | 2025-02-16 18:45 | DI.CT_ITS ---
Exam(s) CT HEAD WO EXAM: CT HEAD WO CLINICAL HISTORY: ams , htn. TECHNIQUE: Imaging Protocol: Axial computed tomography images with coronal and sagittal reformatted images were created and reviewed COMPARISON: MR MR BRAIN WO from 01/16/2024 FINDINGS: There are no skull fractures. Post inflammatory retention cyst is again noted in the anterior aspect of the left maxillary sinus. No associated fluid level. Mild opacification of ethmoidal air cells b ilaterally. Sphenoid and frontal sinuses are clear as are the mastoid air cells. There is no evidence of intracranial hemorrhage, new mass effect, or shift of midline structures. Th ere are no extra-axial fluid collections. Again noted is significant difference in the size the late ral ventricles with the right lateral ventricle again noted be significantly larger than the left, un changed from previous. This is unchanged from prior MRI study 1 year ago (01/16/2024). The opposite -left lateral ventricle again exhibits normal size. There is no obvious: CIS nor other focal abnorma lity at the level of foramen of Monro. The 3rd and 4th ventricles again appear unremarkable. IMPRESSION: No acute intracranial findings on this noninfused CT scan of the brain. There is gross asymmetry of the lateral ventricles again noted, with the right lateral ventricle agai n noted be significantly larger than the left but unchanged from the MRI scan of 01/16/2024. RADIATION DOSE DELIVERED: 931.04mGy.cm Total DLP DATA REPOSITORY: All CT scans at this facility are submitted to the National Radiology Data Registry (NRDR) Dose Index Registry (DIR) with the [employer] (A[employer]). RADIATION OPTIMIZATION: All CT scans at this facility use at least one of these dose optimization te chniques: automated exposure control; mA and/or kV adjustment per patient size (includes targeted exa ms where dose is matched to clinical indication); or iterative reconstruction.
[2025-02-16 19:40] LABS: BE -4 mmol/L (-2-3); HCO3 18 mmol/L (22-26); Site Right Radial; pCO2 21 mmHg (35-45); pH 7.55 (7.35-7.45); pO2 106 mmHg (80-105); sO2 98 % (95-98); tCO2 16 mmol/L (23-27)
[2025-02-16 19:41] LABS: FIO2 21 %; FIO2L 0 L
[2025-02-16 20:10] LABS: Lactate 3.1 mmol/L (<or=2.0)
[2025-02-16] MEDS: LORazepam 20 MG/10 ML VIAL IVP (20:16)
--- NOTE | 2025-02-16 20:26 | DI.VRAD_ITS ---
PROCEDURE INFORMATION: Exam: CT Head Without Contrast Exam date and time: 02/16/2025 7:05 PM Age: 59 years old Clinical indication: Other: AMS , HTN TECHNIQUE: Imaging protocol: Computed tomography of the head without contrast. COMPARISON: MR BRAIN WO 01/16/2024 9:32 AM FINDINGS: Limitations: There is residual intravenous contrast from a recent CTA chest, abdomen, and pelvis. Subtle acute intracranial hemorrhage could be obscured. Brain: No acute intracranial hemorrhage, mass-effect, midline shift, or extra-axial collection is seen. The reeves white matter differentiation appears preserved. Within the limits of the exam, no enhancing mass or other abnormal enhancement is demonstrated. Cerebral ventricles: The right lateral ventricle is dramatically larger than the left, also seen on the comparison MRI exam from January 15, 2025. Paranasal sinuses: There is patchy mucoperiosteal thickening through the visualized paranasal sinuses but no air-fluid levels. Mastoid air cells: The visualized mastoid air cells appear well aerated. Auditory system: The middle ear cavities appear clear. Orbital cavities: The globes and intraorbital structures appear grossly intact. Bones: The bony calvarium appears intact. No depressed skull fracture is seen. Soft tissues: There are scattered coarse skin calcifications in the scalp IMPRESSION: 1. No acute intracranial abnormality seen. 2. Dramatic asymmetry of the lateral ventricles, as seen on the MRI exam from January 16, 2024. Dictated and Authenticated by: Farshad Olivo MD. Orderin Rody Savage MD
[2025-02-16 20:29] LABS: Troponin I 9 ng/L (<or=76)
--- NOTE | 2025-02-16 21:04 | W.PM.HP.N ---
Date of service: 02/16/25 Time of Service: 21:05 Assessment and Plan Assessment and plan (1) Hypertensive emergency: Status: Acute Assessment and plan: - Patient met criteria for hypertensive emergency with a blood pressure systolic of 216, headache, chest pain and shortness of breath as well as elevated lactic of 3.1 is a sign of endorgan damage - Patient given 3 doses of IV labetalol without improvement, was placed on nicardipine drip but was discontinued once mean arterial pressure decreased more than 20% - Head CT, CTA of chest abdomen pelvis without any acute findings - Blood pressures now improved to systolics in the 150s, will continue to monitor overnight and as long as there is not significant elevation we will adjust patient's antihypertensive regimen in the morning - Plan to continue current dose of 20 mg enalapril (2) Lactic acidosis: Status: Acute (3) Acute dyspnea: Status: Acute Assessment and plan: - Likely secondary to hypertensive emergency as noted above - Likely also anxiety component as patient's feeling of chest discomfort and shortness of breath improved after Ativan - Will continue as needed IV Ativan 1 mg every 3 hours overnight for anxiety (4) Diabetes mellitus: Status: Chronic Assessment and plan: - Likely secondary to hypertensive emergency as noted above - Lactic was 3.1 - Follow-up repeat lactic (5) Hypertriglyceridemia: Status: Acute Assessment and plan: -Continue home fenofibrate History of Present Illness History of Present Illness Chief Complaint: Shortness of breath Narrative: 59-year-old male with a past medical history of hypertension, hyperlipidemia and diabetes who presents to the emergency department with sudden onset chest pain and shortness of breath. 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 However, earlier today he moved several 100 pounds of produce and on his way back from [place] sneezed in his car and had a sudden onset of chest pain, shortness of breath and headache which prompted him to present to the emergency department. In the emergency department the patient was noted as being significantly short of breath, with elevated blood pressure to 216/107. Patient was given multiple doses of IV labetalol which did not improve his blood pressure and ultimately was placed on a nicardipine drip. CBC and CMP were unremarkable, though patient did have elevated lactic of 3.1, and ABG showed respiratory alkalosis in the setting of hyperventilation. Patient had head CT as well as CTA of chest abdomen and pelvis that did not show any acute findings. Ultimately, patient's blood pressure did improve on nicardipine drip and was able to be discontinued, and patient's symptoms ultimately resolved after a dose of IV Ativan. At which time emergency room physician paged hospitalist for admission for patient with hypertensive emergency. 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 (Acute) Nocturia (Acute) Elevated PSA (Acute) Obesity (Chronic) Hypertriglyceridemia (Acute) Back pain (Acute) Nephrolithiasis (Chronic) History of rectal bleeding (Acute) Colonic polyp (Acute) Family history of hemochromatosis (Acute) Family history of malignant melanoma (Acute) Dribbling following urination (Acute) Hypertension (Chronic) Diabetes mellitus (Chronic) Medical History Dribbling of urine Pain in right lower leg Low back pain Follicular cyst of skin Essential hypertension Neuropathy Type 2 diabetes mellitus MRSA (methicillin resistant staph aureus) culture positive to buttocks 2010 Scrotal abscess 2005 Surgical History History of back surgery History of colonoscopy (~06/2023) H/O vasectomy H/O lumbosacral spine surgery disc removal 2012, 2014, 2017 MRI 2014 Family History Father Colitis Hemophilia Heart disease Mother Heart disease Hypertension Sister Hemochromatosis Brother Hemochromatosis Diabetes Social History Smoking/Tobacco Use Status: Former Tobacco Use Smoking risk assessment performed?: Yes Alcohol Intake: never Drug use: Daily Substance use type: marijuana Household members: spouse Housing: house Number of Children: 3 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 Meds Allergies and Home Medications Allergies Allergy/AdvReac Type Severity Reaction Status Date / Time acetaminophen Allergy Other (See Verified 02/16/25 18:02 Comment) monosodium glutamate Allergy Other (See Verified 02/16/25 18:02 Comment) oxycodone Allergy Other (See Verified 02/16/25 18:02 Comment) Home Medications ?Medication ?Instructions ?Recorded ?Confirmed ?Type enalapril maleate 20 mg tablet 20 mg PO DAILY 11/03/22 02/16/25 History fenofibrate 160 mg tablet 160 mg PO DAILY 11/03/22 02/16/25 History metformin 500 mg tablet 500 mg PO DAILY 11/03/22 02/16/25 History semaglutide 0.25 mg or 0.5 mg (2 0.5 mg subcut QWEEK 06/02/23 02/16/25 History mg/3 mL) subcutaneous pen injector (Ozempic) aspirin 81 mg capsule 81 mg PO DAILY 03/26/24 02/16/25 History Exam Narrative Exam Narrative: Well-appearing gentleman laying in bed in no acute distress, ANO x 4, heart regular rhythm, lungs clear to auscultation bilaterally, abdomen soft, nontender, nondistended Results Labs 02/16/25 17:13 02/16/25 17:13 Labs: Laboratory Results - last 24 hr 02/16/25 02/16/25 02/16/25 17:13 17:15 18:12 WBC 8.03 RBC 5.26 Hgb 15.8 Hct 44.5 MCV 85 MCH 30.0 MCHC 35.5 RDW 12.2 Plt Count 223 MPV 10.9 Immature Gran % 1.4 Neutrophils % 73.4 Lymphocytes % 17.2 Monocytes % 5.2 Eosinophils % 1.9 Basophils % 0.9 Nucleated RBC % 0.0 Absolute Neutrophils 5.90 Absolute Lymphocytes 1.38 Absolute Monocytes 0.42 Absolute Eosinophils 0.15 Absolute Basophils 0.07 PT 10.1 INR 1.0 ABG Sample Site ABG pH ABG pCO2 ABG pO2 ABG HCO3 ABG Total CO2 ABG O2 Saturation ABG Base Excess VBG Lactate Oxygen Liter Flow FiO2 Sodium 134 L Potassium 3.9 Chloride 96 L Carbon Dioxide 22.1 Anion Gap 15.9 H BUN 12 Creatinine 1.3 Est GFR (CKD-EPI 2021) 62.50 Glucose 281 H Calcium 9.9 Magnesium 1.4 L Total Bilirubin 0.8 AST 21 ALT 50 Alkaline Phosphatase 90 Creatine Kinase 95 Troponin I 6 9 NT-Pro-B Natriuret Pep 79 Total Protein 8.2 Albumin 4.7 Urine Opiates Screen Negative Urine Methadone Screen Negative Ur Barbiturates Screen Negative Ur Tricyclics Screen Negative Ur Amphetamines Screen Negative U Benzodiazepines Scrn Negative Urine Cocaine Screen Negative Ur THC Screen Positive A Ethyl Alcohol < 3.0 02/16/25 02/16/25 19:33 20:05 WBC RBC Hgb Hct MCV MCH MCHC RDW Plt Count MPV Immature Gran % Neutrophils % Lymphocytes % Monocytes % Eosinophils % Basophils % Nucleated RBC % Absolute Neutrophils Absolute Lymphocytes Absolute Monocytes Absolute Eosinophils Absolute Basophils PT INR ABG Sample Site Right Radial ABG pH 7.55 H ABG pCO2 21 L ABG pO2 106 H ABG HCO3 18 L ABG Total CO2 16 L ABG O2 Saturation 98 ABG Base Excess -4 L VBG Lactate 3.1 H* Oxygen Liter Flow 0 FiO2 21 Sodium Potassium Chloride Carbon Dioxide Anion Gap BUN Creatinine Est GFR (CKD-EPI 2020) Glucose Calcium Magnesium Total Bilirubin AST ALT Alkaline Phosphatase Creatine Kinase Troponin I 9 NT-Pro-B Natriuret Pep Total Protein Albumin Urine Opiates Screen Urine Methadone Screen Ur Barbiturates Screen Ur Tricyclics Screen Ur Amphetamines Screen U Benzodiazepines Scrn Urine Cocaine Screen Ur THC Screen Ethyl Alcohol Last Vital Signs Pulse 93 H 02/16/25 20:33 Resp 16 02/16/25 20:33 BP 122/67 02/16/25 20:30 Pulse Ox 92 02/16/25 20:33 Time Spent Time spent with Patient: >75 minutes Time was spent: preparing to see the patient(eg.review tests), obtaining and/or reviewing separately otained hiistory, ordering medications,tests, procedures, referring, communicating with other health director medicare sales, indepentently interpreting results, counseling the patient and care coordination
--- NOTE | 2025-02-16 22:19 | W.PC.ACHO ---
Registration Status: Primary Language: Preferred Language: ED Information & Data Chief Complaint SOB/SuddenOnset 02/16/25 17:35 Chief Complaint SOB/SuddenOnset 02/16/25 17:23 Triage Note Sudden onset SoB, vomiting 02/16/25 17:01 [address] today. PT denies cardiac Hx. Persistent dry heaving since approc 1600 today. PT denies cardiac Hx. Smokes weed most days, did not smoke any yesterday or today . Medical / Surgical History (Last Reviewed 03/26/24 @ 08:24 by Sidra Marie MD) Dribbling of urine Pain in right lower leg Low back pain Follicular cyst of skin Essential hypertension Neuropathy Type 2 diabetes mellitus MRSA (methicillin resistant staph aureus) culture positive Scrotal abscess (Last Reviewed 03/26/24 @ 08:24 by Sidra Marie MD) History of back surgery History of colonoscopy (~06/2023) H/O vasectomy H/O lumbosacral spine surgery Most Recent Vital Signs Pulse 93 H 02/16/25 20:33 Pulse 92 H 02/16/25 18:50 Respiratory Rate 16 02/16/25 20:33 Respiratory Effort Short of Breath 02/16/25 17:32 Blood Pressure 122/67 02/16/25 20:30 Blood Pressure Mean 82 02/16/25 20:30 Blood Pressure Position Sitting 02/16/25 17:01 Pulse Oximetry 92 02/16/25 20:33 Oxygen Delivery Method Room Air 02/16/25 17:01 Oxygen Flow Rate 0 02/16/25 17:01 Allergies acetaminophen Allergy (Verified 02/16/25 18:02) Other (See Comment) headache if given w Percocet monosodium glutamate Allergy (Verified 02/16/25 18:02) Other (See Comment) NORRIS oxycodone Allergy (Verified 02/16/25 18:02) Other (See Comment) NORRIS Active Medications Generic Name Dose Route Start Last Admin Trade Name Freq PRN Reason Stop Dose Admin Nicardipine HCl 25 mg/ Sodium 250 mls @ 50 mls/hr 02/16/25 18:00 02/16/25 20:17 Chloride IV Infused INFUSION ANNIKA Titration Protocol 5 MG/HR Iohexol 100 ml 02/16/25 17:30 02/16/25 17:21 Omnipaque 350 Mg/Ml 100 Ml Btl IJ 03/18/25 23:59 100 ml DIRECTED ANNIKA Administration Labetalol HCl 20 mg 02/16/25 17:15 02/16/25 17:48 Labetalol 100 Mg/20 Ml Vial IVP 20 mg NOW ANNIKA Administration Labetalol HCl 20 mg 02/16/25 20:00 02/16/25 20:05 Labetalol 100 Mg/20 Ml Vial IVP 20 mg NOW ANNIKA Administration Sodium Chloride 0 ml 02/16/25 17:01 02/16/25 17:25 Normal Saline Flush 10 Ml Syr IVP 20 ml PRN PRN Administration Sodium Chloride 50 ml 02/16/25 17:30 02/16/25 17:18 Normal Saline - Diluent 50 Ml Vial IJ 50 ml .FOR DI USE ANNIKA Administration IV IV Catheter Type [Left Saline Lock Antecubital] IV Catheter Type [Right Saline Lock Antecubital] IV Catheter Gauge [Left 18 Antecubital] IV Catheter Gauge [Right 18 Antecubital] Diagnostics 02/16/25 02/16/25 02/16/25 Range/Units 20:05 19:33 18:12 WBC (4.4-10.8) 10^3/uL RBC (4.36-5.78) 10^6/uL Hgb (13.5-17.5) g/dL Hct (40.0-50.0) % MCV (80-95) fL MCH (27.0-33.0) pg MCHC (32.0-36.0) % RDW (11.8-14.1) % Plt Count (130-400) 10^3/uL MPV (8.0-11.0) fL Immature Gran % % Neutrophils % % Lymphocytes % % Monocytes % % Eosinophils % % Basophils % % Nucleated RBC % (0.0-0.3) % Absolute Neutrophils (1.2-6.7) 10^3/uL Absolute Lymphocytes (1.2-3.4) 10^3/uL Absolute Monocytes (0.1-0.8) 10^3/uL Absolute Eosinophils (0.0-0.7) 10^3/uL Absolute Basophils (0.0-0.2) 10^3/uL PT (9.1-11.1) sec INR (0.9-1.1) ABG Sample Site Right Radial ABG pH 7.55 H (7.35-7.45) ABG pCO2 21 L (35-45) mmHg ABG pO2 106 H (80-105) mmHg ABG HCO3 18 L (22-26) mmol/L ABG Total CO2 16 L (23-27) mmol/L ABG O2 Saturation 98 (95-98) % ABG Base Excess -4 L (-2-3) mmol/L VBG Lactate 3.1 H* (<or=2.0) mmol/L Oxygen Liter Flow 0 L FiO2 21 % Sodium (136-145) mmol/L Potassium (3.5-5.1) mmol/L Chloride (98-107) mmol/L Carbon Dioxide (21.0-32.0) mmol/L Anion Gap (3-11) mmol/L BUN (7-18) mg/dL Creatinine (0.70-1.30) mg/dL Est GFR (CKD-EPI 2020) (mL/min/1.73m2) Glucose (74-106) mg/dL Calcium (8.5-10.1) mg/dL Magnesium (1.8-2.4) mg/dL Total Bilirubin (0.2-1.0) mg/dL AST (15-37) U/L ALT (16-63) U/L Alkaline Phosphatase (46-116) U/L Creatine Kinase (39-308) U/L Troponin I 9 9 (<or=76) ng/L NT-Pro-B Natriuret Pep (<300) pg/mL Total Protein (6.4-8.2) g/dL Albumin (3.4-5.0) g/dL Urine Opiates Screen (Negative) Urine Methadone Screen (Negative) Ur Barbiturates Screen (Negative) Ur Tricyclics Screen (Negative) Ur Amphetamines Screen (Negative) U Benzodiazepines Scrn (Negative) Urine Cocaine Screen (Negative) Ur THC Screen (Negative) Ethyl Alcohol (<10) mg/dL 02/16/25 02/16/25 Range/Units 17:15 17:13 WBC 8.03 (4.4-10.8) 10^3/uL RBC 5.26 (4.36-5.78) 10^6/uL Hgb 15.8 (13.5-17.5) g/dL Hct 44.5 (40.0-50.0) % MCV 85 (80-95) fL MCH 30.0 (27.0-33.0) pg MCHC 35.5 (32.0-36.0) % RDW 12.2 (11.8-14.1) % Plt Count 223 (130-400) 10^3/uL MPV 10.9 (8.0-11.0) fL Immature Gran % 1.4 % Neutrophils % 73.4 % Lymphocytes % 17.2 % Monocytes % 5.2 % Eosinophils % 1.9 % Basophils % 0.9 % Nucleated RBC % 0.0 (0.0-0.3) % Absolute Neutrophils 5.90 (1.2-6.7) 10^3/uL Absolute Lymphocytes 1.38 (1.2-3.4) 10^3/uL Absolute Monocytes 0.42 (0.1-0.8) 10^3/uL Absolute Eosinophils 0.15 (0.0-0.7) 10^3/uL Absolute Basophils 0.07 (0.0-0.2) 10^3/uL PT 10.1 (9.1-11.1) sec INR 1.0 (0.9-1.1) ABG Sample Site ABG pH (7.35-7.45) ABG pCO2 (35-45) mmHg ABG pO2 (80-105) mmHg ABG HCO3 (22-26) mmol/L ABG Total CO2 (23-27) mmol/L ABG O2 Saturation (95-98) % ABG Base Excess (-2-3) mmol/L VBG Lactate (<or=2.0) mmol/L Oxygen Liter Flow L FiO2 % Sodium 134 L (136-145) mmol/L Potassium 3.9 (3.5-5.1) mmol/L Chloride 96 L (98-107) mmol/L Carbon Dioxide 22.1 (21.0-32.0) mmol/L Anion Gap 15.9 H (3-11) mmol/L BUN 12 (7-18) mg/dL Creatinine 1.3 (0.70-1.30) mg/dL Est GFR (CKD-EPI 2020) 62.50 (mL/min/1.73m2) Glucose 281 H (74-106) mg/dL Calcium 9.9 (8.5-10.1) mg/dL Magnesium 1.4 L (1.8-2.4) mg/dL Total Bilirubin 0.8 (0.2-1.0) mg/dL AST 21 (15-37) U/L ALT 50 (16-63) U/L Alkaline Phosphatase 90 (46-116) U/L Creatine Kinase 95 (39-308) U/L Troponin I 6 (<or=76) ng/L NT-Pro-B Natriuret Pep 79 (<300) pg/mL Total Protein 8.2 (6.4-8.2) g/dL Albumin 4.7 (3.4-5.0) g/dL Urine Opiates Screen Negative (Negative) Urine Methadone Screen Negative (Negative) Ur Barbiturates Screen Negative (Negative) Ur Tricyclics Screen Negative (Negative) Ur Amphetamines Screen Negative (Negative) U Benzodiazepines Scrn Negative (Negative) Urine Cocaine Screen Negative (Negative) Ur THC Screen Positive A (Negative) Ethyl Alcohol < 3.0 (<10) mg/dL Intake and Output - 24 Hour Total 02/16/25 16:50 thru 02/16/25 21:13 Intake Total 320.00 Output Total 1375 Balance -1055.00 Weight 108.862 kg Intake: IV 320.00 Output: Urine 1375 Other: # Voids 2 Falls Risk Assessment History of Falls No History 02/16/25 17:32 Contributing Factors Unstable 02/16/25 17:32 Cognition No cognitive impairment 02/16/25 17:32 Fall Total Score 3 02/16/25 17:32 Level of Risk Standard/Low Risk 02/16/25 17:32 Problems (Last Reviewed 03/26/24 @ 08:24 by Sidra Marie MD) Acute dyspnea (Acute) Hypertensive emergency (Acute) v v v v v v v v v Sending and/or Receiving Nurses: Please use comment section below to note any information pertinent to the patient hand-off not included above. Information / Comments: Report received from: Aide Wilson RN
[2025-02-17] VITALS (31 sets, daily range): BP systolic 93–168; BP diastolic 65–113; PULSE 78–112; RESP 10–30; TEMP 37.1–37.4; O2SAT 90–97
[2025-02-17 04:40] LABS: HCT 41.6 % (40.0-50.0); HGB 14.8 g/dL (13.5-17.5); MCHC 35.6 % (32.0-36.0); MCV 84 fL (80-95); MPV 11.2 fL (8.0-11.0); Platelet Count 207 10^3/uL (130-400); RBC 4.94 10^6/uL (4.36-5.78); RDW 12.6 % (11.8-14.1); RDW-SD 38.3 fL; WBC 5.89 10^3/uL (4.4-10.8)
[2025-02-17 04:55] LABS: ALT 41 U/L (16-63); AST 20 U/L (15-37); Albumin 3.9 g/dL (3.4-5.0); Alkaline Phosphatase 78 U/L (46-116); Anion Gap 8.5 mmol/L (3-11); BUN 13 mg/dL (7-18); Bilirubin, Total 0.7 mg/dL (0.2-1.0); CO2 26.5 mmol/L (21.0-32.0); CREATININE 1.2 mg/dL (0.70-1.30); Calcium 8.9 mg/dL (8.5-10.1); Chloride 98 mmol/L (98-107); Glucose 228 mg/dL (74-106); Potassium 3.8 mmol/L (3.5-5.1); Sodium 133 mmol/L (136-145); Total Protein 7.2 g/dL (6.4-8.2)
--- NOTE | 2025-02-17 08:41 | PDOC.CMIN ---
Date of service: 02/17/25 Time of Service: 08:41 Care Management Initial Assmt Initial Assessment Reason for Hospitalization: Hypertensive emergency Functional Status/Living Situation Patient Presentation: Jose presented to the ED yesterday with c/o acute SOB while driving. He got sweaty and had dry heaves. He presented with difficulty speaking and looking mottled and clammy. He was found to be hypertensive with BP 215/100, 216/107. He was admitted to ICU. 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 He had some SOB that resolved. Later in the day he was driving, and sneezed, which caused severe pain and SOB and prompted his trip to the ED. Today Jose was sitting up in the bed when CM visited. His , Sue, was with him. Both were very friendly and easy to speak with. Jose stated that he was really scared yesterday, and thought that he was going to . Sue was also terrified. Both feel very fortunate for the care that Jose has received. Jose was hoping to go home today, but his BP is still elevated. His DBP was noted at 108 while CM was in the room. He is really hoping for tomorrow, or at least a transfer to the floor where it feels it will be a little quieter. Town of Residence: [place] Resides with: Spouse (Iva) Significant Other/Family: Local (children Zeke, Duong and Moy, parents, Margie and Cm) Natural Supports: family Employment Status: Employed (self-employed [employer]) Instrumental Activities of Daily Living (ADLs): Independent Medications Medication Management: No Issues/Barriers identified Advance Directives Advance Directives: Do you have an Advance Directive: N 02/16/25 21:22 AD On File at [facility]: N 08/30/23 08:15 Date Asked 02/16/25 02/16/25 17:03 AD Date Reviewed COLST On File at [facility] No 02/16/25 21:22 COLST Date Scanned Comment: Jose asked for an AD today. He was given the form. Instructions were given. He was tired and chose not to complete with CM at that time. Code Status Resuscitation Status Full Code Insurance Coverage/Financial Issues Insurance: BC/BS [place] [facility] Advantage? Care Team Visit Care Team Role Provider Type Marla Doe MD Primary Care Provider [facility] STAFF PHYSICIAN Garrett Fine MD Emergency Provider [facility] STAFF PHYSICIAN David Michel MD Admit Provider [facility] STAFF PHYSICIAN Attending Provider Discharge Potential Discharge Needs: PCP F/U Appt Anticipated Barriers to Discharge: None Identified Patient/Family Education Needs: Review discharge instructions, discuss Ask Me Three Transportation: Private vehicle Plan: Anticipate that Jose will be discharged home with no new services. Jose will transport home in a private vehicle. He will f/u with his PCP and continue per his plan of care. CM will continue to follow and update the plan as needed. Social Determinants of Health Screening Social Determinants of health last assessed in clinic: 02/17/25 Will the Patient Participate in the Screening?: Yes Do you worry about having a steady place to live?: no Problems where you live: no known problems In the past 12 months, have you had to go without electric, gas, oil or water in your home?: no 1. Within the past 12 months, we worried whether our food would run out before we got money to buy more.: Never true 2. Within the past 12 months, the food we bought just didn't last and we didn't have money to get more.: Never true Has lack of transportation kept you from medical appointments or from doing things needed for daily living?: no Has anyone in your life made you feel unsafe or unsupported?: no How hard is it for you to pay for the very basics like food, housing, medical care, and heating? Would you say it is:: Somewhat hard Do you want help finding or keeping work or a job?: I do not need or want help If for any reason you need help with day-to-day activities such as bathing, preparing meals, shopping, managing finances, etc., do you get the help you need?: I don?t need any help How often do you feel lonely or isolated from those around you?: Never Do you speak a language other than Portuguese at home?: Yes Does the patient want assistance with any of the above?: No Health Related Social Needs Health related social needs: problems related to housing/economic circumstances (Z59.89) and education (Z55.6) Health related social needs details: Per patient, does not require assistance at this time. 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 (Acute) Nocturia (Acute) Elevated PSA (Acute) Obesity (Chronic) Hypertriglyceridemia (Acute) Back pain (Acute) Nephrolithiasis (Chronic) History of rectal bleeding (Acute) Colonic polyp (Acute) Family history of hemochromatosis (Acute) Family history of malignant melanoma (Acute) Dribbling following urination (Acute) Hypertension (Chronic) Diabetes mellitus (Chronic) Medical History Dribbling of urine Pain in right lower leg Low back pain Follicular cyst of skin Essential hypertension Neuropathy Type 2 diabetes mellitus MRSA (methicillin resistant staph aureus) culture positive to buttocks 2010 Scrotal abscess 2005 Surgical History History of back surgery History of colonoscopy (~06/2023) H/O vasectomy H/O lumbosacral spine surgery disc removal 2012, 2014, 2017 MRI 2014 Family History Father Colitis Hemophilia Heart disease Mother Heart disease Hypertension Sister Hemochromatosis Brother Hemochromatosis Diabetes Social History Smoking/Tobacco Use Status: Former Tobacco Use Smoking risk assessment performed?: Yes Alcohol Intake: never Drug use: Daily Substance use type: marijuana Household members: spouse Housing: house Number of Children: 3 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
[2025-02-17] MEDS: Aspirin E.C. 81 MG TABEC PO (09:07)
[2025-02-17] MEDS: Enalapril 5 MG TAB 20 MG PO (09:07)
[2025-02-17] MEDS: Normal Saline Flush 10 ML SYR IVP (09:10)
[2025-02-17] MEDS: Fenofibrate, Micronized 145 MG TAB PO (09:25)
[2025-02-17 12:19] LABS: Lactate 2.2 mmol/L (<or=2.0)
[2025-02-17 12:53] LABS: Lab Add On Test DONE
[2025-02-17] MEDS: LORazepam 20 MG/10 ML VIAL IVP (14:10)
[2025-02-17] MEDS: Acetaminophen 325 MG TAB PO (14:43)
--- NOTE | 2025-02-17 16:01 | W.PM.DS.N ---
Date of service: 02/17/25 Time of Service: 16:01 DS: Diagnosis Discharge Diagnosis (1) Hypertensive emergency: Status: Acute (2) Lactic acidosis: Status: Acute (3) Acute dyspnea: Status: Acute (4) Diabetes mellitus: Status: Chronic (5) Hypertriglyceridemia: Status: Acute Discharge Plan Disposition Patient Disposition: Home Condition: Good Discharge Details Reason For Visit: Hypertensive emergency Admit Date/Time: 02/16/25 21:04 Admit Provider: David Michel Attending Provider: David Michel 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 Shortness of breath started that morning before leaving to buy produce in [place]. He was able to load several hundred pounds of fruit and drove back to [place]. Chest pain started after a sneeze. Evaluation in the ED including CT head, CTA C/A/P, EKG, and troponins were reassuring, but his blood pressure was high up to the 210s over 110s. His ABG showed respiratory alkalosis. His anion gap and lactate was elevated but there was no signs of infection. He was briefly on nicardipine drip and was admitted to the ICU. His troponins remained negative and he had no events on telemetry. His symptoms were much improved after a dose of lorazepam. His acute chest pain and shortness of breath was related to a large degree to panic. He had a more mild recurrence 02/17 that was again relieved by lorazepam. He was given #7 lorazepam for prn use in the future with precautions given including no driving. His anion gap closed and his lactate improved. This was felt to be related to acute stress and a degree of dehydration. His blood pressure remained moderately elevated but his home enalapril was not changed. He had recently regained about 25lbs of weight. TSH was sent. He did have linear bruising in medial upper arms but no adrenal masses on his CT, cortisol was sent. It was noted that his A1c was newly elevated to 9.4% on February 01 and his sugars were in the 200s here. His metformin was held after the CT but increasing to 500mg BID was recommended at discharge along with increasing semaglutide to 1mg. He had a systolic cardiac murmur, with no echocardiogram on record. Echocardiogram was ordered as an outpatient. It was noted on CT that his ventricular ratio was 1:1 suggesting pulmonary HTN. He did endorse a history of BEN but states this had previously resolved after weight loss. PCP follow up: Appointment within 2 weeks, after the echocardiogram Follow up echocardiogram results Follow up home blood pressure monitoring. Follow up diabetes medication titration. Follow up random cortisol results, hypomagnesemia Home Meds and New Rx's Prescriptions: New Ozempic 1 mg/dose (4 mg/3 mL) pen injector 1 mg subcut QWEEK Qty: 9 3RF Rx Instructions: increase dose lorazepam 1 mg tablet 1 mg PO DAILY PRNQty: 7 0RF Continued aspirin 81 mg capsule 81 mg PO DAILY fenofibrate 160 mg tablet 160 mg PO DAILY enalapril maleate 20 mg tablet 20 mg PO DAILY Changed metformin 500 mg tablet 500 mg PO BID Qty: 180 0RF Discontinued Ozempic 0.25 mg or 0.5 mg (2 mg/3 mL) pen injector 0.5 mg subcut QWEEK Discharge Instructions Instructions: High blood pressure emergencies Additional Instructions: You should double the doses of both Ozempic and metformin. Wait until Monday 02/19 to start back on metformin because of the contrast CT scan. We sent a new prescription for 1mg Ozempic. Monitor your blood pressure at home. We ordered an echocardiogram to look at your heart Consider going back to the plant-based diet You can use the lorazepam if you have sudden severe symptoms of anxiety. You should not drive or use machinery after taking this. Activity:: Activity as Tolerated Equipment/Supplies:: No Equipment Needed Diet:: Carb Counting Discharge Orders Discharge Orders: Discharge Order (Routine); Ordered 02/17/25 Ordered By: Nathan Borden Other Ambulatory Orders: US echocardiogram (Routine) Timeframe: 10 Day Facility: [facility] - Location: DIAGNOSTIC IMAGING Ordered By: Nathan Borden DS: Summary Time Spent with Patient providing and/or coordinating discharge services: Greater than 30 minutes Status at Discharge Functional status at discharge: independent ambulation Overall status at discharge: patient is back to baseline Mental Status: mental status grossly normal Speech and Movement: speech and movement normal Mood: congruent mood Affect: normal affect Quality:SDOH Health Related Social Needs: Health related social needs problems related to housing/economic circumstances (Z59.89), education (Z55.6) Health related social needs details Per patient, does not require assistance at this time. Health related social needs details: Per patient, does not require assistance at this time. Exam Narrative Exam Narrative: Well-appearing gentleman laying in bed in no acute distress, ANO x 4, heart regular rhythm, lungs clear to auscultation bilaterally, abdomen soft, nontender, nondistended. extremities without cyanosis, clubbing, or edema. Normal mood and affect, normal thought process. no rash. Psych Mental Status: mental status grossly normal Speech and Movement: speech and movement normal Mood: congruent mood Affect: normal affect DS: Data Vitals/I&O Vitals and I&O: Vital Signs Temperature 37.4 C 02/17/25 13:31 Temperature Source Temporal Artery Scan 02/17/25 13:31 Pulse 80 02/17/25 15:01 Pulse 82 02/17/25 15:01 Respiratory Rate 18 02/17/25 15:01 Respiratory Effort Normal, Non-Labored 02/16/25 22:30 Respiratory Depth Normal 02/16/25 22:30 Respiratory Pattern Normal 02/16/25 22:30 Blood Pressure 137/88 02/17/25 15:01 Blood Pressure Mean 101 02/17/25 15:01 Blood Pressure Position Sitting 02/16/25 17:01 Pulse Oximetry 93 02/17/25 15:01 Oxygen Delivery Method Room Air 02/17/25 13:31 Oxygen Flow Rate 0 02/17/25 13:31 Pain Level 0 02/17/25 13:31 Comment BP on left arm; patient sleeping on right side 02/16/25 23:16 Intake & Output 02/16/25 02/17/25 02/17/25 23:59 11:59 23:59 Intake Total 320.00 / 320.00 1020 / 1520 500 / 1520 Output Total 1795 / 1795 570 / 1270 700 / 1270 Balance -1475.00 / -1475.00 450 / 250 -200 / 250 Weight 109.3 kg 108.7 kg Intake: IV 320.00 / 320.00 20 / 20 Oral 1000 / 1500 500 / 1500 Output: Urine 1795 / 1795 570 / 1270 700 / 1270 Other: Urine Color Pale Light Sharyn Yellow Urine Appearance Clear Clear Clear Urine Odor Normal Normal None # Voids 2 Data Completed and Pending Labs on day of discharge: Labs from last 24 hours 02/17/25 12:07: VBG Lactate 2.2 H* 02/17/25 04:25: WBC 5.89, RBC 4.94, Hgb 14.8, Hct 41.6, MCV 84, MCH 30.0, MCHC 35.6, RDW 12.6, Plt Count 207, MPV 11.2 H, Sodium 133 L, Potassium 3.8, Chloride 98, Carbon Dioxide 26.5, Anion Gap 8.5, BUN 13, Creatinine 1.2, Est GFR (CKD-EPI 2020) 68.80, Glucose 228 H, Calcium 8.9, Magnesium Pending, Total Bilirubin 0.7, AST 20, ALT 41, Alkaline Phosphatase 78, Total Protein 7.2, Albumin 3.9, TSH Pending, Cortisol Pending, Add-On Test Request DONE 02/16/25 20:05: VBG Lactate 3.1 H*, Troponin I 9 02/16/25 19:33: ABG Sample Site Right Radial, ABG pH 7.55 H, ABG pCO2 21 L, ABG pO2 106 H, ABG HCO3 18 L, ABG Total CO2 16 L, ABG O2 Saturation 98, ABG Base Excess -4 L, Oxygen Liter Flow 0, FiO2 21 02/16/25 18:12: Troponin I 9 02/16/25 17:15: Urine Opiates Screen Negative, Urine Methadone Screen Negative, Ur Barbiturates Screen Negative, Ur Tricyclics Screen Negative, Ur Amphetamines Screen Negative, U Benzodiazepines Scrn Negative, Urine Cocaine Screen Negative, Ur THC Screen Positive A 02/16/25 17:13: WBC 8.03, RBC 5.26, Hgb 15.8, Hct 44.5, MCV 85, MCH 30.0, MCHC 35.5, RDW 12.2, Plt Count 223, MPV 10.9, Immature Gran % 1.4, Neutrophils % 73.4, Lymphocytes % 17.2, Monocytes % 5.2, Eosinophils % 1.9, Basophils % 0.9, Nucleated RBC % 0.0, Absolute Neutrophils 5.90, Absolute Lymphocytes 1.38, Absolute Monocytes 0.42, Absolute Eosinophils 0.15, Absolute Basophils 0.07, PT 10.1, INR 1.0, Sodium 134 L, Potassium 3.9, Chloride 96 L, Carbon Dioxide 22.1, Anion Gap 15.9 H, BUN 12, Creatinine 1.3, Est GFR (CKD-EPI 2020) 62.50, Glucose 281 H, Calcium 9.9, Magnesium 1.4 L, Total Bilirubin 0.8, AST 21, ALT 50, Alkaline Phosphatase 90, Creatine Kinase 95, Troponin I 6, NT-Pro-B Natriuret Pep 79, Total Protein 8.2, Albumin 4.7, Ethyl Alcohol < 3.0 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 (Acute) Nocturia (Acute) Elevated PSA (Acute) Obesity (Chronic) Hypertriglyceridemia (Acute) Back pain (Acute) Nephrolithiasis (Chronic) History of rectal bleeding (Acute) Colonic polyp (Acute) Family history of hemochromatosis (Acute) Family history of malignant melanoma (Acute) Dribbling following urination (Acute) Hypertension (Chronic) Diabetes mellitus (Chronic) Medical History Dribbling of urine Pain in right lower leg Low back pain Follicular cyst of skin Essential hypertension Neuropathy Type 2 diabetes mellitus MRSA (methicillin resistant staph aureus) culture positive to buttocks 2010 Scrotal abscess 2005 Surgical History History of back surgery History of colonoscopy (~06/2023) H/O vasectomy H/O lumbosacral spine surgery disc removal 2012, 2015, 2017 MRI 2014 Family History Father Colitis Hemophilia Heart disease Mother Heart disease Hypertension Sister Hemochromatosis Brother Hemochromatosis Diabetes Social History Smoking/Tobacco Use Status: Former Tobacco Use Smoking risk assessment performed?: Yes Alcohol Intake: never Drug use: Daily Substance use type: marijuana Household members: spouse Housing: house Number of Children: 3 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
--- NOTE | 2025-02-17 16:26 | CMDISCH_ITS ---
Date of service: 02/17/25 Time of Service: 16:26 LACE Index Scoring Tool Questions: Length of Stay (in days): 1 Was the patient admitted via the E.D.?: Yes Comorbidities: Diabetes w/o Complication E.D. Visits: 1 Answers: Total Score: 6 Risk of Readmission: Low Risk Care Management Discharge Plan Reason for Hospitalization: hypertensive emergency Discharge Plan: Jose is discharged home this afternoon with no new services. He was ordered for an echocardiogram as outpatient. He will f/u with his PCP, continue per his prescribed plan of care, and transport home with his . Patient/Family Education Needs: Review of discharge instructions, activity, limitations, and discuss Ask me 3. SDOH Health Related Social Needs: Health related social needs problems related to anna marie richardson/economic circumstances (Z59.89), education (Z55.6) Health related social needs details Per patient, does not require assistance at this time. Health related social needs details: Per patient, does not require assistance at this time. Care Management Referrals: Other (Jose denies any difficulties or needs.)
[2025-02-17 19:09] LABS: Magnesium 1.9 mg/dL (1.8-2.4); TSH (W/Ref FT4) 0.75 uIU/mL (0.36-3.74)
== END 2025-02-17 16:33 | disposition home or self-care (01) | DRG 305 ==
LOC: ER 21:24 → ICU 22:03
PROVIDERS: Admitting Provider Family Medicine; Emergency Provider Emergency Medicine; PCP Family Medicine; Responsible Provider Family Medicine; Visit Provider Family Medicine
DX: I16.1 Hypertensive emergency (principal); E87.20 Acidosis, unspecified; Q04.8 Other specified congenital malformations of brain; E78.1 Pure hyperglyceridemia; R06.00 Dyspnea, unspecified; R01.1 Cardiac murmur, unspecified; I10 Essential (primary) hypertension; E66.9 Obesity, unspecified; R35.1 Nocturia; E11.40 Type 2 diabetes mellitus with diabetic neuropathy, unspecified; Z87.891 Personal history of nicotine dependence; Z86.73 Personal history of transient ischemic attack (TIA), and cerebral infarction without residual deficits; F12.90 Cannabis use, unspecified, uncomplicated; R51.9 Headache, unspecified; R06.02 Shortness of breath; R07.89 Other chest pain; H49.12 Fourth [trochlear] nerve palsy, left eye; Z79.84 Long term (current) use of oral hypoglycemic drugs; Z79.899 Other long term (current) drug therapy
CPT/HCPCS: 00123; 36415; 71275; 80053; 80307; 82533; 82550; 82805; 85027; 93005; 96365; 96366; 96375; 96376; 99291; 36600; 70450; 74174; 80320; 83605; 83735; 83880; 84443; 84484; 85025; 85610; 93010; 99223; 99239; J1920; J2060; J2404; J2405; J3475; J3490

== ENCOUNTER 2025-03-12 01:06 | Outpatient (CLI) | payer MEDICARE, SELFPAY ==
--- NOTE | 2025-03-12 | DI.US_ITS ---
APPROVED REPORT EXAM: Comprehensive 2D, Doppler, and color-flow Echocardiogram Patient Location: Out-Patient [employer]: Germaine Alexander RDCS (AE) Indications: Hypertensive crisis, Chest pain Other Information Study Quality: Adequate Conclusion Normal left ventricular wall thickness and chamber size. Ejection fraction is 60%. Wall motion is n ormal Normal right ventricular size and function Both atria are normal in size Aortic valve is calcified. There is mild aortic stenosis with a mean gradient of 15 mmHg. There is trace aortic regurgitation Ascending aorta measures 3.55 cm Wall motion Left Ventricle The left ventricle is normal size. The left ventricular systolic function is normal. The left ventric ular ejection fraction is within the normal range. There is normal left ventricular wall thickness. T here is normal LV segmental wall motion. There is no ventricular septal defect visualized. LVEF is 60 %. Right Ventricle The right ventricle is normal size. The right ventricular systolic function is normal. Atria The left atrium size is normal. The right atrium size is normal. The interatrial septum is intact wit h no evidence for an atrial septal defect. Aortic Valve Aortic valve is calcified. Number of aortic valve leaflets could not be assessed. Mean gradient is 15 mmHg Mild aortic stenosis. Trace aortic regurgitation. Mitral Valve The mitral valve is normal in structure. No evidence of mitral valve stenosis. Trace mitral regurgita tion. Tricuspid Valve The tricuspid valve is normal in structure. There is no tricuspid valve stenosis. Trace tricuspid reg urgitation. Unable to assess PA pressure. Pulmonic Valve The pulmonary valve is normal in structure. There is no pulmonic valvular stenosis. There is no pulmo matteo valvular regurgitation. Great Vessels The aortic root is normal in size. The ascending aorta is mildly dilated. Ascending aorta is not well visualized. IVC is normal in size and collapses >50% with inspiration. Pericardium There is no pericardial effusion. 2D Dimensions IVSD d PLAX 1.07 cm M: 0.6-1.2 Ao Root d 3.08 cm M: 3.1 - 3.7 LVPW d PLAX 1.12 cm M: 0.6 - 1.2 Ao Asc Diam d 3.55 cm M: 2.6 - 3.4 LVID d PLAX 5.20 cm M: 4.2 - 5.8 LVDs 3.54 cm M: 2.5 - 4.0 LV EF Teichholz 59.7 % FS 31.94 % LV EDV (Teich) 129.7 mL LV ESV (Teich) 52.3 mL M-Mode TAPSE 2.49 cm (M/F) >1.7 Auto EF LV EDV A4C 170.9 mL LV EDV A2C 138.6 mL LV EDV BP 155.4 mL LV ESV A4C 72.3 mL LV ESV A2C 57.7 mL LV ESV BP 65.2 mL LVEF(%) A4C 57.7 % LVEF(%) A2C 58.4 % LVEF(%) BP 58.1 % LV SV A4C 98.6 ml LV SV A2C 80.9 ml LV SV BP 90.2 ml LV CO A4C 6.1 L/min LV CO A2C 5.4 L/min LV CO BP 5.8 L/min HR A4C 62.07 BPM HR A2C 67.04 BPM LV EDV Index (BP) LA Volume LA Length A4C 5.2 cm LA Length A2C 5.3 cm LA Area A4C s 15.74 cm2 LA Area A2C s 19.69 cm2 LA Vol A4C A-L 40.68 mL LA Vol A2C A-L 62.16 mL LA Vol Biplane A-L 50.9 mL LA Vol/BSA A4C A-L LA Vol/BSA A2C A-L LA Vol/BSA BP A-L 22.4 mL/m2 LA Vol A4C MOD 38.5 mL LA Vol A2C MOD 55.9 mL LA Vol BP MOD 46.7 mL RA Volume RA Area A4C 10.5 cm2 RA ESV A4C (A-L) 21.3mL RA Vol/BSA A4C A-L RA Length A4C 4.4 cm RA ESV A4C (MOD) 20.2mL LV Diastology MV E' medial 0.097 (>0.07 m/s) MV E Vmax 0.73 (0.4-1.3 m/s) MV E/E' MED 7.51 (<14) MV A Vmax 0.85 (0.4-1.3 m/s) MV E' lateral 0.123 (>0.1 m/s) E/A Ratio 0.9 MV E/E' LAT 5.93 (<14) MV E' Average 0.110 m/s MV E/E'(average) 6.63 Aortic Valve AoV Vmax 2.53 m/s LVOT Vmax 1.29 m/s AoV Peak Grad 25.6 mmHg LVOT Peak Grad 6.7 mmHg AoV Area (Vmax) 1.61 cm2 LVOT VTI 0.280 m AoV VTI 0.520 m LVOT Mean Grad 4.3 mmHg AoV Mean Luis. 1.80 m/s LVOT SV 88.53 mL AoV Mean Grad 14.8 mmHg LVOT Diam s 2.00 cm AoV Area (VTI) 1.70 cm2 AV Regurg Peak Gr. 25.60 mmHg Velocity Ratio 0.51 Mitral Valve MV DT 259 (160-240 msec) MV Vmax TIPS 0.79 m/s MV Mean Grad 1.1 (<2mmHg) MV VTI 0.272 m Pulmonary Valve PV Vmax 1.01 (0.5-1.5 m/s) RVOT Vmax 0.81 m/s PV Peak Grad 4.1 mmHg RVOT Peak Gr. 2.6 mmHg PV Mean Luis 0.68 m/s RVOT VTI 0.163 m PV Mean Grad 2.2 mmHg RVOT Mean Gr. 1.4 mmHg Tricuspid Valve TV S' 0.14 m/s
== END 2025-03-12 01:26 ==
LOC: DI 01:06
PROVIDERS: PCP Family Medicine; Visit Provider Internal Medicine Cardiovascular Disease
DX: Z86.79 Personal history of other diseases of the circulatory system (principal); I35.0 Nonrheumatic aortic (valve) stenosis
CPT/HCPCS: 93306

== ENCOUNTER 2025-04-16 08:58 | Outpatient (CLI) | payer MEDICARE, SELFPAY ==
--- NOTE | 2025-04-16 08:45 | RT.EKG_ITS ---
APPROVED REPORT Exam: Resting ECG Reason for Exam: atypical chest pain Patient Location: O HR:59 bpm ECG Measurements Heart Rate 59 AXIS GA 174 P 54 QRSd 111 QRS -15 QT 408 T 60 QTc 405 Conclusion Sinus rhythm...normal P axis, V-rate 50- 99 Probable left atrial enlargement...P >50mS, <-0.10mV V1 Borderline left axis deviation...QRS axis (-15,-29) RSR' in V1 or V2, probably normal variant...small R' only Borderline T wave abnormalities...T/QRS ratio < 1/20 or flat T
== END 2025-04-16 08:59 | disposition home or self-care (01) ==
LOC: DI.CARD 08:59
PROVIDERS: PCP Physician Assistant; Visit Provider Internal Medicine Cardiovascular Disease
DX: E78.1 Pure hyperglyceridemia (principal); I10 Essential (primary) hypertension
CPT/HCPCS: 93010

== ENCOUNTER → 2025-04-16 12:56 | Outpatient (BNVA) | payer MEDICARE, SELFPAY | PROVIDERS: PCP Physician Assistant; Referring Provider Physician Assistant; Visit Provider Internal Medicine Cardiovascular Disease | DX: I35.0 Nonrheumatic aortic (valve) stenosis (principal); R07.9 Chest pain, unspecified; I10 Essential (primary) hypertension; E78.1 Pure hyperglyceridemia | CPT/HCPCS: 99214; 93005 ==

== ENCOUNTER 2025-04-22 01:58 | Outpatient (CLI) | payer MEDICARE, SELFPAY ==
--- NOTE | 2025-04-22 07:30 | DI.NM_ITS ---
APPROVED REPORT Exam: Exercise Treadmill Patient Location: Out-Patient Room/Bed: Stress Nurse: Shira Art RN Ordering Provider:SUDHEER HENDERSON, Contact Number: BMI: 34.16 Baseline Rhythm: Sinus Rhythm Indications: Chest pain and risk factors, Medical History Medical History: EF 60% (6/25) Cardiac Medications: Fenofibrate, aspirin, lorazepam, metformin, ozemoic, enalapril Allergies: Acetaminophen, MSG, oxycodone Cardiac Risk Factors: Family hx, HTN, HLD, CVD, diabetes Previous Cardiac Procedures: None Pretest Chest Pain Characteristics: None Exercise History: Physically active Physical Disabilities: None Lung Sounds: Clear to auscultation Heart Sounds: Regular Stress Test Details Test: Exercise stress testing was performed using a Italo protocol. Nuclear Acquisition: Rest Tc-99m/Stress Tc-99m 1 day Rest Isotope: Tc-99m Sestamibi. Dose: 12.0 Date: 04/22/2025 Injection Time: 1100 Stress Isotope: Tc-99m Sestamibi. Dose: 36.0 Date: 04/22/2025 Injection Time: 1310 HR Resting HR Supine: 64 bpm Max Heart Rate (APMHR): 159 bpm Resting HR Standin bpm Target HR (85% APMHR): 135 bpm Max HR Achieved: 146 bpm % of APMHR: 92 Recovery HR: 88 bpm HR response to stress: Normal HR response to stress BP Resting BP Supine: 168/98 mmHg Resting BP Standin/94 mmHg Max BP: 250/88 mmHg Recovery BP: 164/92 mmHg BP response to stress: Abnormal hypertensive response to stress. ECG Resting ECG: Sinus Rhythm Ectopy: None Stress ECG: Sinus Tachycardia ST Change: No significant ST segment changes noted Arrhythmia: None Recovery ECG: Sinus Rhythm Recovery ST Change: No significant ST segment changes noted Recovery Arrhythmia: None Clinical Reason for Termination: Target HR Achieved, Mod SOB (patient requested to stop) Stress Symptoms: Moderate SOB Exercise duration: 08 min01 sec Highest Stage Reached: Stage 3: 3.4 mph at 14% grade. Exercise capacity: 10.16 METs Angina Score: None Khanna Treadmill Score: 7.3 Rate Pressure Product: [id number] Stress ECG Conclusion 1. Resting electrocardiogram showed minor nondiagnostic ST abnormalities 2. Patient exercised on the Italo protocol completed workload of 10 METS 3. Normal heart rate and blood pressure response to exercise. The patient achieved 92% of maximal predicted heart rate for age 4. There was no electrocardiographic evidence of myocardial ischemia 5. There were no significant dysrhythmias 6. See MPI report Khanna Treadmill Score is 7.3 which is Low risk. Stress Test Summary STAGE Time (mins) Speed (mph) Grade (%) HR BP SpO2 SYMPTOMS METS Supine 64 168/98 98% Standing 61 170/94 98% 1 3 1.7 10 103 200/88 98% Mild SOB 4.5 2 6 2.5 12 129 208/90 98% Mod SOB 7 3 9 3.4 14 145 10 1 min recovery 120 250/88 98% 3 min recovery 92 204/88 98% 6 min recovery 88 164/92 98% Patient requested to stop treadmill r/t moderate SOB. All symptoms resolved and patient proceeded to imaging ambulatory in no apparent distress. MPI Conclusion Myocardial perfusion was normal. There was no ischemia or evidence of prior infarction Ejection fraction is normal, with normal wall motion
== END 2025-04-22 02:18 ==
LOC: DI 01:58
PROVIDERS: PCP Physician Assistant; Visit Provider Internal Medicine Cardiovascular Disease
DX: R07.9 Chest pain, unspecified (principal)
CPT/HCPCS: 78452; 93016; 93018; 93017

== ENCOUNTER → 2025-05-07 13:54 | Outpatient (BNVA) | payer MEDICARE, SELFPAY | PROVIDERS: PCP Physician Assistant; Referring Provider Physician Assistant; Visit Provider Internal Medicine Cardiovascular Disease | DX: I35.0 Nonrheumatic aortic (valve) stenosis (principal); I10 Essential (primary) hypertension | CPT/HCPCS: 99213 ==

== ENCOUNTER 2025-05-29 12:26 | Outpatient (CLI) | payer MEDICARE, SELFPAY ==
[2025-05-30 09:18] LABS: PSA, Diagnostic 4.2 ng/mL (<=4.5)
== END 2025-05-29 12:27 | disposition home or self-care (01) ==
LOC: LBO 12:26
PROVIDERS: PCP Physician Assistant; Visit Provider Nurse Practitioner Gerontology
DX: R97.20 Elevated prostate specific antigen [PSA] (principal); N40.1 Benign prostatic hyperplasia with lower urinary tract symptoms; N13.8 Other obstructive and reflux uropathy
CPT/HCPCS: 36415; 84153

== ENCOUNTER 2025-07-31 01:36 | Outpatient (CLI) | payer MEDICARE, SELFPAY ==
[2025-07-31 10:29] LABS: Anion Gap 6.9 mmol/L (3-11); BUN 14 mg/dL (7-18); CO2 31.1 mmol/L (21.0-32.0); Calcium 8.9 mg/dL (8.5-10.1); Chloride 99 mmol/L (98-107); Estimated GFR 68.38 (mL/min/1.73m2); Glucose 206 mg/dL (74-106); Potassium 4.4 mmol/L (3.5-5.1); Sodium 137 mmol/L (136-145)
== END 2025-07-31 01:37 | disposition home or self-care (01) ==
PROVIDERS: PCP Physician Assistant; Visit Provider Student in an Organized Health Care Education/Training Program
DX: I10 Essential (primary) hypertension (principal)
CPT/HCPCS: 36415; 80048

== ENCOUNTER → 2025-08-06 14:57 | Outpatient (BNVA) | payer MEDICARE, SELFPAY | PROVIDERS: PCP Physician Assistant; Visit Provider Nurse Practitioner Gerontology | DX: N40.1 Benign prostatic hyperplasia with lower urinary tract symptoms (principal); N13.8 Other obstructive and reflux uropathy; R97.20 Elevated prostate specific antigen [PSA]; N52.9 Male erectile dysfunction, unspecified; R03.0 Elevated blood-pressure reading, without diagnosis of hypertension | CPT/HCPCS: 99213 ==

== ENCOUNTER 2025-08-07 09:59 | Outpatient (REF) | payer MEDICARE, SELFPAY ==
[2025-08-07 15:53] LABS: COMMENT (LAB VIEW ONLY) 149.53 mg/dL; Microalb ug/mg Crea 15.6 ug/mg Cr
== END 2025-08-07 10:00 | disposition home or self-care (01) ==
LOC: NCHCN 09:59
PROVIDERS: PCP Physician Assistant; Visit Provider Student in an Organized Health Care Education/Training Program
DX: I10 Essential (primary) hypertension (principal)
CPT/HCPCS: 82043; 82570